=== PATIENT | male | born 1950 | race African-American/Black ===

== ENCOUNTER 2019-04-07 13:14 | Inpatient (IN) | payer BC, SELFPAY ==
[~2019-04-07 13:14] MED LIST: Iopamidol-370 76% 500 ML 1 ML ONE
[2019-04-07] MEDS ORDERED: niCARdipine 25 MG in Sodium Chloride 0.9% 250 ML 250 ML IVPB SCH (14:15)
--- NOTE | 2019-04-07 14:17 | CT ---
Exam: Head CT without contrast HISTORY: Level 2 stroke. Dizziness, starting last night. At one point this morning, left arm and leg went numb. Slurred speech. COMPARISON: none FINDINGS: Hemorrhage: No intraparenchymal hemorrhage or extra-axial hematoma. Brain parenchyma: Cortical joyce-white matter differentiation is preserved. No mass effect or midline shift. Basilar cisterns are patent.Minimal chronic small vessel ischemic changes of the white matter. Ventricular system: Ventricles and sulci are patent and symmetric. Calvarium: Intact. Sinuses and mastoid air cells: Adequate aeration. IMPRESSION: No acute intracranial process. Results study discussed with Dr. Dugan 04/07/2019 2:13 PM Code CR
[2019-04-07 14:21] LABS: #Basophils 0.1 thou/uL (0.0-0.2); #Lymphocytes 1.5 thou/uL (1.20-3.40); #Monocytes 0.3 thou/uL (0.11-0.59); %Basophils 1.2 % (0.0-1.0); %Eosinophils 0.5 % (0.0-10.0); %Lymphocytes 24.9 % (21.0-51.0); %Monocytes 4.7 % (0.0-10.0); %Neutrophils 68.8 % (42.0-75.0); Mean Corpuscular HGB CONC 32.5 g/dL (32.0-36.0); Mean Corpuscular Hemoglobin 26.8 pg (27.0-31.0); Mean Corpuscular Volume 82.7 fL (78.0-98.0); Platelet Count 125 thou/uL (130-400); RBC Distribution Width 12.5 % (11.5-14.5); Red Blood Cell (RBC) Count 5.21 mill/uL (4.70-6.10); White Blood Cell (WBC) Count 5.9 thou/uL (4.8-10.8)
[2019-04-07 14:27] LABS: INR-International Normal Ratio 1.2; Prothrombin Time 15.3 SEC (12.0-14.7)
[2019-04-07 14:42] LABS: ALT (SGPT) 14 U/L (8-55); AST (SGOT) 17 U/L (5-34); Albumin 4.2 g/dL (3.4-4.8); Alkaline Phosphatase 58 U/L (40-110); Anion Gap 14 mmol/L (10-20); BUN (Urea Nitrogen) 22 mg/dL (8.4-25.7); Bilirubin, Total 0.5 mg/dL (0.2-1.2); Calc. Creatinine Clearance 0 mL/min (70-130); Calcium 9.1 mg/dL (7.8-10.44); Carbon Dioxide 19 mmol/L (23-31); Chloride 111 mmol/L (98-107); Estimated GFR-MDRD 69; Glucose 105 mg/dL (80-115); Potassium 3.8 mmol/L (3.5-5.1); Protein, Total 7.2 g/dL (5.8-8.1); Sodium 140 mmol/L (136-145)
--- NOTE | 2019-04-07 14:46 | CT ---
CTA Angio Head W WO Con History: Weakness Comparison: None. Findings: CT angiogram of the head and neck were performed after the intravenous ministration of cont rast. 3-D rendering provided. There is extensive collateralization of vasculature. Lung apices are clear. Reversal normal cervical lordosis may be positional. No acute fracture of the cervical spine. Multiple missing teeth. There is significant reflux of contrast into the left internal jugular vein. This can be sequelae of the brachiocephalic vein narrowing. CT angiographic evaluation of the neck vertebral arteries is nondiagnostic due to lack of normal arterial opacification. Common carotid artery origin evaluation i s extremely limited. No hemodynamically significant stenosis internal carotid arteries per NASCET criteria. [place] is is patent without stenosis, thrombosis, nor aneurysm formation. [place] anterior cerebral artery. Asymmetrically enlarged right A1 segment. Basilar artery is patent. Impression: 1. No hemodynamically significant stenosis, thrombosis, nor aneurysm formation. 2. Extensive vascular collateralization the paraspinal musculature as well as reflux contrast into th e left internal jugular vein with narrowing of the left brachiocephalic vein between the great vessels and sternum.
[2019-04-07] MEDS ORDERED: Aspirin Chewable 81 MG TAB ONE (15:09)
[2019-04-07] MEDS ORDERED: niCARdipine 40MG In NaCl 40 MG/200 ML BAG IVPB SCH (16:00)
[2019-04-07 17:11] VITALS: BMI 24.9
[2019-04-07] MEDS: niCARdipine 50 MG in Sodium Chloride 0.9% 250 ML 230 ML IV SCH ×2 (17:16→20:50)
[2019-04-07] MEDS ORDERED: Lisinopril/Hydrochlorothiazide 10 mg/12.5 mg Tablet PO SCH (17:30)
[2019-04-07] MEDS ORDERED: Amlodipine 10 MG TAB PO SCH (17:30)
[2019-04-07 17:51] LABS: Troponin I 0.145 ng/mL (< 0.028)
--- NOTE | 2019-04-07 17:55 | HP ---
PRIMARY CARE PROVIDER: None. CHIEF COMPLAINT: Dizziness. HISTORY OF PRESENT ILLNESS: Mr. Glover is a pleasant 68-year-old gentleman, who was seen at [facility] on April 07, 2019. 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 Yesterday evening, he noticed, he was on the show when he had difficulty finding words. He subsequently went to a restaurant. He was going to have a beer, but he found that he could not reach with his hand because of weakness. He also started having lightheadedness and felt like he would pass out. He had attributed it to being tired and went home to sleep. Today morning, he did not go to work. He continued to have dizziness. He also reportedly had episode of slurred speech. He also found that his left leg was weak and numb, and he was unable to ambulate. He denies any dysphagia. He denies any vision symptoms. He denies any chest pain or shortness of breath. He came to the emergency room because of concern over stroke. REVIEW OF SYSTEMS: All systems were for reviewed and found to be negative, except for the pertinent positives mentioned above. PAST MEDICAL HISTORY: He was told that he had hypertension in the past, but has never taken antihypertensive medications. PAST SURGICAL HISTORY: None. SOCIAL HISTORY: The patient drinks 4 beers a day. He smokes marijuana occasionally. He denies tobacco use. FAMILY HISTORY: Myocardial infarction in his father at age 71. ALLERGIES: NO KNOWN DRUG ALLERGIES. CURRENT MEDICATIONS: None. PHYSICAL EXAMINATION: GENERAL: On examination, Mr. Glover is awake and alert, not in acute distress. VITAL SIGNS: BMI is 24.9. Blood pressure 172/103, pulse 83, respiratory rate 19, and oxygen saturation 100% on room air. He is afebrile. EYES: No scleral icterus. No conjunctival pallor. ENT: Moist mucosal membranes. No oropharyngeal erythema or exudates. NECK: Supple, nontender. Trachea is midline. RESPIRATORY: Accessory muscles of breathing are not active. Chest wall movements are symmetric bilaterally. LUNGS: Clear to auscultation without wheeze, rhonchi, or crepitations. CARDIOVASCULAR: S1 and S2 are heard, regular. Peripheral pulses palpable. ABDOMEN: Soft, nontender. Bowel sounds are heard. NEUROLOGIC: Cranial nerves 2 through 12 are intact. Power is 4+/5 in the left upper and lower extremities, 5/5 in the right upper and lower extremities. Deep tendon reflexes 2+, plantars downgoing bilaterally. MUSCULOSKELETAL: Power in the 4 extremities as described above. SKIN: No rashes or subcutaneous nodules. LYMPHATIC: No cervical lymphadenopathy. PSYCHIATRIC: Normal mood, normal affect. The patient is oriented to person, place, and time. LABORATORY DATA AND DIAGNOSTIC DATA: Mr. Glover's labs and investigations were reviewed. Electrocardiogram shows normal sinus rhythm with premature supraventricular complexes and left ventricular hypertrophy. Noncontrast CT scan of the brain did not show any acute intracranial abnormality. He also had CT angiogram of [place] and neck, which did not show any hemodynamically significant stenosis, thrombosis, or aneurysm formation. He also had extensive vascular collateralization of the paraspinal musculature as well as reflux contrast into the left internal jugular vein with narrowing of the left brachiocephalic vein between the great vessels and sternum. He has an unremarkable CBC, INR 1.2, normal sodium, normal potassium, normal creatinine, estimated GFR of 69, unremarkable LFTs, and indeterminate troponin-I of 0.145. ASSESSMENT AND PLAN: Mr. Glover is a pleasant 68-year-old gentleman, who was seen at [facility] on April 07, 2019. His problem list includes: 1. Hypertensive urgency: Mr. Glover is presenting with hypertensive urgency. In the emergency room, his blood pressures have been as high as 219/119. He is currently on a Cardene drip. He will be admitted to the Critical Care Unit for titrating the Cardene drip. 2. Dizziness: This could be secondary to hypertensive urgency. However, given the left-sided weakness, he will need to be ruled out for stroke. I will order MRI of the brain and 2D echocardiogram. I will also consult Neurology Service for opinion and help with management. I will start him on aspirin. 3. Daily alcohol use: The patient will be started on ASE protocol. 4. Marijuana use: The patient has been counseled regarding marijuana cessation. Many thanks for allowing me to participate in Mr. Glover's care. Please feel free to contact me with any questions or concerns. LEVEL OF RISK: Moderate. LEVEL OF COMPLEXITY: Moderate. Job ID: [id number]
[2019-04-07] MEDS: hydrALAZINE 20 MG/ML VIAL SLOW IVP PRN (18:34)
[2019-04-07] MEDS: Atorvastatin Calcium 40 MG TAB PO SCH (20:30)
[2019-04-07 20:40] LABS: Troponin I 0.137 ng/mL (< 0.028)
[2019-04-08 03:50] LABS: #Basophils 0.1 thou/uL (0.0-0.2); #Lymphocytes 1.4 thou/uL (1.20-3.40); #Monocytes 0.4 thou/uL (0.11-0.59); #Neutrophils 5.2 thou/uL (1.40-6.50); %Basophils 1.1 % (0.0-1.0); %Eosinophils 0.4 % (0.0-10.0); %Lymphocytes 19.8 % (21.0-51.0); %Monocytes 5.8 % (0.0-10.0); %Neutrophils 72.9 % (42.0-75.0); Hemoglobin 13.9 g/dL (14.0-18.0); Mean Corpuscular HGB CONC 32.4 g/dL (32.0-36.0); Mean Corpuscular Hemoglobin 26.7 pg (27.0-31.0); Mean Corpuscular Volume 82.4 fL (78.0-98.0); Mean Platelet Volume 8.7 fL (7.4-10.4); Platelet Count 128 thou/uL (130-400); RBC Distribution Width 12.6 % (11.5-14.5); Red Blood Cell (RBC) Count 5.21 mill/uL (4.70-6.10); White Blood Cell (WBC) Count 7.1 thou/uL (4.8-10.8)
[2019-04-08 04:05] LABS: Anion Gap 11 mmol/L (10-20); BUN (Urea Nitrogen) 18 mg/dL (8.4-25.7); Calc. Creatinine Clearance 63 mL/min (70-130); Carbon Dioxide 22 mmol/L (23-31); Chloride 109 mmol/L (98-107); Cholesterol 155 mg/dl (< 200 Desired); Estimated GFR-MDRD 73; Glucose 123 mg/dL (80-115); Potassium 3.4 mmol/L (3.5-5.1); Sodium 139 mmol/L (136-145); Triglycerides 46 mg/dL (Less than 150)
[2019-04-08 04:06] LABS: HDL Cholesterol 77 mg/dL (>60 Neg Risk); LDL Cholesterol, Calculated 69 mg/dL
[2019-04-08] MEDS: niCARdipine 50 MG in Sodium Chloride 0.9% 250 ML 230 ML IV SCH ×3 (05:54→18:21)
[2019-04-08] MEDS: Enoxaparin Sodium 40 MG/0.4 ML SYRINGE SC SCH (09:16)
[2019-04-08] MEDS: Aspirin 325 mg Enteric Coated Tablet PO SCH (09:17)
[2019-04-08] MEDS: Lisinopril/Hydrochlorothiazide 10 mg/12.5 mg Tablet PO SCH (09:17)
[2019-04-08] MEDS: Amlodipine 5 MG TAB PO SCH (09:17)
--- NOTE | 2019-04-08 09:25 | MRI ---
MRI BRAIN NONCONTRAST: DATE: 04/08/2019 HISTORY: 68-year-old male with acute dizziness, mild dysarthria, and left upper and lower extremity hypesthesi a. Stroke symptoms. COMPARISON: No prior brain MRIs. FINDINGS: At midline and slightly to the right of midline, there is a 0.8 x 0.4 cm old lacunar infarction. In t he right side of the abe, there is a subtle, ill-defined, faint patch of mildly hyperintense T2 sign al measuring approximately 1.0 x 0.4 cm, with mildly restricted diffusion. The appropriate flow-voids are maintained in the bilateral intracranial vertebral and basilar arterie s, and in the bilateral carotid siphons. Ventricles are normal in size and configuration. Numerous ve ry small focal T2 hyperintense lesions in the bilateral [place] radiata and centrum semiovale consiste nt with mild chronic ischemic white matter changes due to small vessel disease. No evidence of recent or remote intra-axial hemorrhage, mass effect, midline shift, or extra-axial fluid collection. IMPRESSION: 1. Mildly restricted diffusion and faint T2 prolongation at right side of abe: findings suggestive of a recetn lacunar infarction in the right side of the abe, perhaps subacute. Recommend 3 month fo llow up MRI of brain with and without contrast to rule out other etiologies. 2. Old lacunar infarction at midline abe. 3. Mild chronic ischemic white matter changes. JN R POS: OFF
[2019-04-08] MEDS: hydrALAZINE 20 MG/ML VIAL SLOW IVP PRN (12:54)
--- NOTE | 2019-04-08 16:41 | PDOC.HOSPP ---
- Subjective Encounter Date: 04/08/19 Encounter Time: 09:40 Subjective: Pt seen for followup re: hypertensive urgency. Feels better today. has LUE weakness. - Objective Vital Signs & Weight: Vital Signs (12 hours) Pulse Pulse Pulse BP BP BP Pulse Ox 04/08/19 14:31 72 155/82 H 04/08/19 12:54 72 172/80 H 04/08/19 09:17 72 157/88 H 04/08/19 09:05 70 65 160/92 H 155/81 H 04/08/19 07:59 99 Pulse Ox Pulse Ox 04/08/19 14:31 99 04/08/19 12:54 04/08/19 09:17 04/08/19 09:05 100 99 04/08/19 07:59 Weight Admit Weight 163 lb Weight 163 lb 12.855 oz Most Recent Monitor Data Heart Rate from ECG 79 NIBP 155/81 NIBP BP-Mean 105 Respiration from ECG 22 SpO2 98 I&O: 04/07/19 04/08/19 04/09/19 06:59 06:59 06:59 Intake Total 1414 Output Total 1150 Balance 264 Result Diagrams: 04/08/19 03:33 04/08/19 03:33 Additional Labs: labs and MARs reviewed by co Hospitalist ROS - Review of Systems Respiratory: denies: cough, dry, shortness of breath, hemoptysis, SOB with excertion, pleuritic pain, sputum, wheezing Cardiovascular: denies: chest pain, palpitations, orthopnea, paroxysmal noc. dyspnea, edema, light headedness Neurological: reports: weakness, numbness, change in speech - Medication Medications: Active Medications Generic Name Dose Route Start Last Admin Trade Name Freq PRN Reason Stop Dose Admin Amlodipine Besylate 5 mg 04/08/19 09:00 04/08/19 09:17 Norvasc PO 5 mg DAILY MARY Administration Aspirin 325 mg 04/08/19 09:00 04/08/19 09:17 Ecotrin PO 325 mg DAILY MARY Administration Atorvastatin Calcium 40 mg 04/07/19 21:00 04/07/19 20:30 Lipitor PO 40 mg HS MARY Administration Enoxaparin Sodium 40 mg 04/08/19 09:00 04/08/19 09:16 Lovenox SC 40 mg 0900 MARY Administration Lisinopril/HCTZ 1 tab 04/08/19 09:00 04/08/19 09:17 Prinizide 10-12.5 PO 1 tab DAILY MAYR Administration Hydralazine HCl 10 mg 04/07/19 17:30 04/08/19 12:54 Apresoline SLOW IVP 10 mg Q6H PRN Administration SBP Greater Than 170 Nicardipine HCl 50 mg/ Sodium 250 mls @ 0 mls/hr 04/07/19 16:15 04/08/19 12: 58 Chloride IV 250 mls INF MARY Administration Protocol As Directed - Exam General Appearance: NAD Eye: anicteric sclera ENT: moist mucosa Neck: supple, no JVD Heart: RRR, no rubs Respiratory: CTAB Gastrointestinal: soft, non-tender Extremities: no clubbing Skin: no rashes Neurological: speech deficit Neurological - other findings: LUE weakness Musculoskeletal: no muscle wasting Psychiatric: normal behavior Hosp A/P (1) Hypertensive urgency Code(s): I16.0 - HYPERTENSIVE URGENCY Status: Acute (2) Ischemic cerebrovascular accident (CVA) Code(s): I63.9 - CEREBRAL INFARCTION, UNSPECIFIED Status: Acute (3) Hypokalemia Code(s): E87.6 - HYPOKALEMIA Status: Acute - Plan PT/OT, out of bed/ambulate Try to wean off cardene drip Continue aspirin and statin. Await MRI/echo Continue ASE protocol. Pt appears anxious, PRN PO Xanax.
[2019-04-08] MEDS ORDERED: Potassium Chloride 20 MEQ TAB PO SCH (16:45)
[2019-04-08] MEDS ORDERED: Prevnar 13-Val Conj/PF 0.5 ML SYRINGE IM ONE (18:00)
[2019-04-08] MEDS ORDERED: FLU VACC TS2019-20(65YR UP)/PF 180 MCG/0.5 ML SYRINGE IM ONE (18:00)
[2019-04-08] MEDS: ALPRAZolam 0.25 MG TAB PO PRN (18:21)
[2019-04-08] MEDS: Atorvastatin Calcium 40 MG TAB PO SCH (20:51)
[2019-04-09 04:19] LABS: #Basophils 0.1 thou/uL (0.0-0.2); #Eosinphils 0.1 thou/uL (0.0-0.7); #Lymphocytes 1.9 thou/uL (1.20-3.40); #Monocytes 0.5 thou/uL (0.11-0.59); #Neutrophils 3.5 thou/uL (1.40-6.50); %Eosinophils 1.6 % (0.0-10.0); %Lymphocytes 30.8 % (21.0-51.0); %Monocytes 7.3 % (0.0-10.0); %Neutrophils 58.2 % (42.0-75.0); Hemoglobin 14.7 g/dL (14.0-18.0); Mean Corpuscular HGB CONC 32.8 g/dL (32.0-36.0); Mean Corpuscular Hemoglobin 26.9 pg (27.0-31.0); Mean Corpuscular Volume 81.9 fL (78.0-98.0); Mean Platelet Volume 8.8 fL (7.4-10.4); Platelet Count 136 thou/uL (130-400); RBC Distribution Width 12.8 % (11.5-14.5); Red Blood Cell (RBC) Count 5.46 mill/uL (4.70-6.10); White Blood Cell (WBC) Count 6.1 thou/uL (4.8-10.8)
[2019-04-09 04:36] LABS: Anion Gap 13 mmol/L (10-20); BUN (Urea Nitrogen) 15 mg/dL (8.4-25.7); Calc. Creatinine Clearance 68 mL/min (70-130); Calcium 9.3 mg/dL (7.8-10.44); Carbon Dioxide 23 mmol/L (23-31); Chloride 106 mmol/L (98-107); Estimated GFR-MDRD 80; Glucose 102 mg/dL (80-115); Potassium 3.8 mmol/L (3.5-5.1); Sodium 138 mmol/L (136-145)
[2019-04-09] MEDS: niCARdipine 50 MG in Sodium Chloride 0.9% 250 ML 230 ML IV SCH (04:40)
[2019-04-09] MEDS: Aspirin 325 mg Enteric Coated Tablet PO SCH (08:46)
[2019-04-09] MEDS: Amlodipine 5 MG TAB PO SCH (08:46)
[2019-04-09] MEDS: Enoxaparin Sodium 40 MG/0.4 ML SYRINGE SC SCH (08:46)
[2019-04-09] MEDS: Lisinopril/Hydrochlorothiazide 10 mg/12.5 mg Tablet PO SCH (09:33)
[2019-04-09] MEDS ORDERED: hydrALAZINE 25 MG TAB PO SCH (11:15)
--- NOTE | 2019-04-09 14:25 | PDOC.HOSPP ---
- Subjective Encounter Date: 04/09/19 Encounter Time: 09:40 Subjective: Pt seen for followup re; hypertensive urgency. - Objective Vital Signs & Weight: Vital Signs (12 hours) Temp Pulse BP Pulse Ox 04/09/19 11:31 97 04/09/19 11:11 69 154/92 H 04/09/19 09:33 69 154/92 H 04/09/19 08:46 69 154/92 H 04/09/19 08:00 99 04/09/19 04:00 98.3 F Weight Admit Weight 163 lb Weight 163 lb 12.855 oz Most Recent Monitor Data Heart Rate from ECG 82 NIBP 171/123 NIBP BP-Mean 139 Respiration from ECG 24 SpO2 99 I&O: 04/08/19 04/09/19 04/10/19 06:59 06:59 06:59 Intake Total 1414 2077 315 Output Total 1150 1975 0 Balance 264 102 315 Result Diagrams: 04/09/19 03:27 04/09/19 03:27 Additional Labs: Labs and MARs reviewed by me EKG Reviewed by me: Yes (Tele: NSR) Hospitalist ROS - Review of Systems Cardiovascular: denies: chest pain, palpitations, orthopnea, paroxysmal noc. dyspnea, edema, light headedness Gastrointestinal: denies: nausea, vomiting, abdominal pain, diarrhea, constipation, melena, hematochezia Neurological: reports: weakness - Medication Medications: Active Medications Generic Name Dose Route Start Last Admin Trade Name Freq PRN Reason Stop Dose Admin Alprazolam 0.25 mg 04/08/19 14:40 04/08/19 18:21 Xanax PO 0.25 mg BIDPRN PRN Administration Anxiety Amlodipine Besylate 5 mg 04/08/19 09:00 04/09/19 08:46 Norvasc PO 5 mg DAILY MARY Administration Aspirin 325 mg 04/08/19 09:00 04/09/19 08:46 Ecotrin PO 325 mg DAILY MARY Administration Atorvastatin Calcium 40 mg 04/07/19 21:00 04/08/19 20:51 Lipitor PO 40 mg HS MARY Administration Enoxaparin Sodium 40 mg 04/08/19 09:00 04/09/19 08:46 Lovenox SC 40 mg 0900 MARY Administration Lisinopril/HCTZ 1 tab 04/08/19 09:00 04/09/19 09:33 Prinizide 10-12.5 PO 1 tab DAILY MARY Administration Hydralazine HCl 10 mg 04/07/19 17:30 04/08/19 12:54 Apresoline SLOW IVP 10 mg Q6H PRN Administration SBP Greater Than 170 Nicardipine HCl 50 mg/ Sodium 250 mls @ 0 mls/hr 04/07/19 16:15 04/09/19 04: 40 Chloride IV 250 mls INF MARY Administration Protocol As Directed - Exam General Appearance: NAD Eye: anicteric sclera ENT: moist mucosa Neck: supple, no JVD Heart: RRR, no rubs Respiratory: CTAB, no rales Gastrointestinal: soft, non-tender Extremities: no edema Skin: no rashes Neurological - other findings: LUE weakness Psychiatric: normal affect, normal behavior Hosp A/P (1) Hypertensive urgency Code(s): I16.0 - HYPERTENSIVE URGENCY Status: Acute (2) Ischemic cerebrovascular accident (CVA) Code(s): I63.9 - CEREBRAL INFARCTION, UNSPECIFIED Status: Acute (3) Hypokalemia Code(s): E87.6 - HYPOKALEMIA Status: Resolved - Plan PT/OT, out of bed/ambulate Increase hydralazine dose. Continue aspirin and statin. Echo unremarkable. Continue ASE protocol. Pt denies chest pain. Troponins in indeterminate range. May need risk stratification.
[2019-04-09] MEDS: hydrALAZINE 25 MG TAB PO SCH ×2 (14:53→20:29)
--- NOTE | 2019-04-09 17:05 | CON ---
DATE OF CONSULTATION: 04/09/2019 CONSULTING PHYSICIAN: Pedro Hooks MD REASON FOR CONSULTATION: The patient is in the ICU for treatment of hypertensive emergency related to stroke. HISTORY OF PRESENT ILLNESS: Mr. Glover is a pleasant 68-year-old, who was admitted several days ago with a facial droop on the left, left-sided weakness, and malignant hypertension requiring a nicardipine drip. He has recovered most of his speech deficit, but has left arm weakness and some weakness in his left leg. PAST MEDICAL HISTORY: Remarkable for hypertension, but he does not follow up after the initial visit with his primary care doctor several years ago. PAST SURGICAL HISTORY: None. SOCIAL HISTORY: He drinks four beers a day. He smokes marijuana in the morning and the evening. He works at [employer]. 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 FAMILY MEDICAL HISTORY: Remarkable for heart disease. ALLERGIES: NONE. MEDICATIONS: Prior to admission none. CURRENT INPATIENT MEDICATIONS: Reviewed, see chart. REVIEW OF SYSTEMS: Twelve-point review of systems is otherwise negative. PHYSICAL EXAMINATION: VITAL SIGNS: Temperature 98.3, pulse 90, blood pressure 157/135, and O2 saturation 97%. GENERAL: He is awake and alert, in no distress. NEUROLOGIC: His pupils are reactive. He has a left-sided facial droop. He has 3/5 muscle strength left hand and left arm. 4/5 muscle strength, left leg. He has 5/5 muscle strength right arm and right leg. He has feeling throughout. HEENT: Otherwise, unremarkable. NECK: No adenopathy or JVD. CHEST: Clear without wheezing or rhonchi. CARDIAC: S1 and S2. Regular. ABDOMEN: Soft. EXTREMITIES: No edema. LABORATORY DATA: White blood cell count 6.1, hematocrit 44.7, and platelet count 136. Sodium 138, potassium 3.8, chloride 106, CO2 of 23, BUN 15, creatinine 1.1, and glucose 102. His MRI shows a right-sided pontine stroke. Echocardiogram demonstrated left ventricular hypertrophy with ejection fraction of 60% to 65% with evidence of diastolic dysfunction. ASSESSMENT: 1. Malignant hypertension. 2. Pontine stroke with left-sided hemiparesis. PLAN: The patient is being weaned off his nicardipine drip. His oral antihypertensives have been adjusted by Dr. Hooks. He can probably transfer to the stroke floor later this evening. I agree with his medical care and have nothing at this time. Thank you for the referral. Job ID: [id number]
[2019-04-09] MEDS: Atorvastatin Calcium 40 MG TAB PO SCH (20:28)
--- NOTE | 2019-04-09 22:04 | CON ---
DATE OF CONSULTATION: 04/09/2019 CONSULTING PHYSICIAN: Hospitalist Service. IMPRESSION: 1. Lacunar stroke in the abe resulting in a left hemiparesis. 2. Undiagnosed hypertension. PLAN: 1. Aspirin 81 mg per day. 2. Lipitor 40 mg per day. 3. Blood pressure management. 4. Probable need for rehab transfer. HISTORY OF PRESENT ILLNESS: Mr. Glover is a 68-year-old man, who had no known past history, presented with left-sided weakness. He was markedly hypertensive. He was admitted to the ICU and put on a Cardene drip. Initial CT and CTA did not show any extracranial stenosis. MRI revealed a pontine infarct that was acute. His echocardiogram shows a normal ejection fraction of 60% to 65%. Cholesterol ratio was 2.0. Remainder of his lab was unremarkable. He has seen very little improvement in his left-sided weakness since admission. PAST MEDICAL HISTORY: Otherwise negative. ALLERGIES: NONE. SOCIAL HISTORY: No tobacco or illicit drug use. FAMILY HISTORY: Noncontributory. REVIEW OF SYSTEMS: Ten-system review of systems is otherwise negative. PHYSICAL EXAMINATION: GENERAL: He is a thin, middle-aged man, sitting up in a chair, in no acute distress. VITAL SIGNS: Blood pressure 154/98, pulse 72, and sinus rhythm. HEENT: Pupils are equal and reactive. Conjunctivae clear. Oropharynx clear. Cranium, normocephalic and atraumatic. NECK: Supple. No lymphadenopathy. EXTREMITIES: No cyanosis, clubbing, or edema. NEUROLOGIC: He is alert and appropriate. His speech is fluent and clear. He has a slight left facial droop. He has a dense left upper extremity paresis with no movement. He has antigravity strength proximally in the left leg, but no movement distally. Sensation is intact to light touch. No tremor or dysmetria is present. Gait was not tested. SUMMARY: This is a middle-aged man with a lacunar stroke in the abe, resulting in a left hemiparesis. His workup is complete. He has good swallow function. He can be transferred out when he has stabilized his blood pressure. He will likely need inpatient rehab. Job ID: [id number]
[2019-04-10] MEDS: hydrALAZINE 20 MG/ML VIAL SLOW IVP PRN ×2 (02:10→11:25)
[2019-04-10] MEDS: ALPRAZolam 0.25 MG TAB PO PRN ×2 (03:37→20:31)
[2019-04-10 04:08] LABS: #Eosinphils 0.1 thou/uL (0.0-0.7); #Lymphocytes 1.2 thou/uL (1.20-3.40); #Monocytes 0.5 thou/uL (0.11-0.59); #Neutrophils 3.2 thou/uL (1.40-6.50); %Basophils 0.6 % (0.0-1.0); %Eosinophils 2.8 % (0.0-10.0); %Lymphocytes 24.5 % (21.0-51.0); %Monocytes 9.8 % (0.0-10.0); %Neutrophils 62.3 % (42.0-75.0); Hemoglobin 15.3 g/dL (14.0-18.0); Mean Corpuscular HGB CONC 31.5 g/dL (32.0-36.0); Mean Corpuscular Hemoglobin 26.1 pg (27.0-31.0); Mean Corpuscular Volume 82.8 fL (78.0-98.0); Mean Platelet Volume 8.7 fL (7.4-10.4); Platelet Count 127 thou/uL (130-400); RBC Distribution Width 12.8 % (11.5-14.5); Red Blood Cell (RBC) Count 5.88 mill/uL (4.70-6.10); White Blood Cell (WBC) Count 5.1 thou/uL (4.8-10.8)
[2019-04-10 04:31] LABS: Anion Gap 14 mmol/L (10-20); BUN (Urea Nitrogen) 24 mg/dL (8.4-25.7); Calc. Creatinine Clearance 52 mL/min (70-130); Calcium 9.4 mg/dL (7.8-10.44); Carbon Dioxide 22 mmol/L (23-31); Chloride 105 mmol/L (98-107); Estimated GFR-MDRD 59; Glucose 101 mg/dL (80-115); Potassium 3.8 mmol/L (3.5-5.1); Sodium 137 mmol/L (136-145)
[2019-04-10] MEDS: hydrALAZINE 25 MG TAB PO SCH ×3 (07:53→20:30)
[2019-04-10] MEDS: Aspirin 325 mg Enteric Coated Tablet PO SCH (07:53)
[2019-04-10] MEDS: Amlodipine 5 MG TAB PO SCH (07:54)
[2019-04-10] MEDS: Lisinopril/Hydrochlorothiazide 10 mg/12.5 mg Tablet PO SCH (07:54)
[2019-04-10] MEDS: Enoxaparin Sodium 40 MG/0.4 ML SYRINGE SC SCH (07:55)
--- NOTE | 2019-04-10 08:35 | PRG ---
DATE OF SERVICE: 04/10/2019 SUBJECTIVE: The patient is doing reasonably well. He has been weaned off the nicardipine drip. OBJECTIVE: VITAL SIGNS: Temperature 98.3, pulse 96, blood pressure 155/91, O2 saturation 100%. HEENT: Unremarkable. NECK: No adenopathy or JVD. LUNGS: Clear. CARDIAC: S1, S2. Regular. ABDOMEN: Soft. EXTREMITIES: No edema. He still has left-sided hemiparesis. LABORATORY DATA: White blood cell count 5.1, hematocrit 48.7, and platelet count 127. Sodium 137, potassium 3.8, chloride 105, CO2 of 22, BUN 24, creatinine 1.5, glucose 101. ASSESSMENT: 1. Pontine stroke with left-sided hemiparesis. 2. Hypertension. PLAN: He will be transferred to the floor to continue stroke rehab. Hypertensive management will be per the Hospitalist team. Pulmonary will sign off the case. Please recall if further assistance is needed. Job ID: [id number]
--- NOTE | 2019-04-10 12:55 | PDOC.HOSPP ---
- Subjective Encounter Date: 04/10/19 Encounter Time: 09:20 Subjective: Pt seen for followup re: hypertensive urgency. Still has LUE weakness. - Objective Vital Signs & Weight: Vital Signs (12 hours) Temp Pulse BP Pulse Ox 04/10/19 11:25 81 155/117 H 04/10/19 07:55 100 04/10/19 07:54 81 155/117 H 04/10/19 07:53 81 155/117 H 04/10/19 07:00 97.9 F 04/10/19 04:00 98.3 F 04/10/19 02:10 65 172/118 H Weight Admit Weight 163 lb Weight 163 lb 12.855 oz Most Recent Monitor Data Heart Rate from ECG 77 NIBP 174/127 NIBP BP-Mean 142 Respiration from ECG 14 SpO2 95 I&O: 04/09/19 04/10/19 04/11/19 06:59 06:59 06:59 Intake Total 2077 855 300 Output Total 1975 700 0 Balance 102 155 300 Result Diagrams: 04/10/19 03:40 04/10/19 03:40 Additional Labs: Labs and MARs reviewed by me EKG Reviewed by me: Yes (Tele: NSR) Hospitalist ROS - Review of Systems Cardiovascular: denies: chest pain, palpitations, orthopnea, paroxysmal noc. dyspnea, edema, light headedness Gastrointestinal: denies: nausea, vomiting, abdominal pain, diarrhea, constipation, melena, hematochezia - Medication Medications: Active Medications Generic Name Dose Route Start Last Admin Trade Name Freq PRN Reason Stop Dose Admin Alprazolam 0.25 mg 04/08/19 14:40 04/10/19 03:37 Xanax PO 0.25 mg BIDPRN PRN Administration Anxiety Aspirin 325 mg 04/08/19 09:00 04/10/19 07:53 Ecotrin PO 325 mg DAILY MARY Administration Atorvastatin Calcium 40 mg 04/07/19 21:00 04/09/19 20:28 Lipitor PO 40 mg HS MARY Administration Enoxaparin Sodium 40 mg 04/08/19 09:00 04/10/19 07:55 Lovenox SC 40 mg 0900 MARY Administration Lisinopril/HCTZ 1 tab 04/08/19 09:00 04/10/19 07:54 Prinizide 10-12.5 PO 1 tab DAILY MARY Administration Hydralazine HCl 10 mg 04/07/19 17:30 04/10/19 11:25 Apresoline SLOW IVP 10 mg Q6H PRN Administration SBP Greater Than 170 - Exam General Appearance: NAD Eye: anicteric sclera ENT: dry oral mucosa Neck: supple Heart: RRR Respiratory: CTAB Gastrointestinal: soft, non-tender Neurological - other findings: LUE weak Psychiatric: normal behavior, A&O x 3 Hosp A/P (1) Hypertensive urgency Code(s): I16.0 - HYPERTENSIVE URGENCY Status: Acute (2) Ischemic cerebrovascular accident (CVA) Code(s): I63.9 - CEREBRAL INFARCTION, UNSPECIFIED Status: Acute (3) ERIC (acute kidney injury) Code(s): N17.9 - ACUTE KIDNEY FAILURE, UNSPECIFIED Status: Acute (4) Hypokalemia Code(s): E87.6 - HYPOKALEMIA Status: Resolved - Plan Increase hydralazine dose to 50 mg TID, amlodipine to 10 mg daily. Gentle hydration and recheck creatinine. Continue aspirin and statin. Continue ASE protocol. Stress test
[2019-04-10] MEDS ORDERED: hydrALAZINE 25 MG TAB PO SCH (13:00)
[2019-04-10] MEDS ORDERED: Amlodipine 5 MG TAB PO SCH (13:00)
[2019-04-10] MEDS: Sodium Chloride 0.9% 1,000 ML IV SCH (15:44)
[2019-04-10] MEDS: Atorvastatin Calcium 40 MG TAB PO SCH (20:31)
[2019-04-11] MEDS: Enoxaparin Sodium 40 MG/0.4 ML SYRINGE SC SCH (07:56)
[2019-04-11] MEDS: hydrALAZINE 25 MG TAB PO SCH ×3 (07:57→20:22)
[2019-04-11] MEDS: Amlodipine 10 MG TAB PO SCH (07:57)
[2019-04-11] MEDS: Aspirin 325 mg Enteric Coated Tablet PO SCH (07:57)
[2019-04-11] MEDS: Lisinopril/Hydrochlorothiazide 10 mg/12.5 mg Tablet PO SCH (07:58)
[2019-04-11] MEDS: Sodium Chloride 0.9% 1,000 ML IV SCH (12:02)
--- NOTE | 2019-04-11 14:51 | PDOC.HOSPP ---
- Subjective Encounter Date: 04/11/19 Encounter Time: 09:00 Subjective: Pt seen for followup re: hypertensive urgency. No new complaints today. - Objective Vital Signs & Weight: Vital Signs (12 hours) Temp Pulse Resp BP BP BP BP 04/11/19 14:17 62 142/90 H 04/11/19 13:53 142/90 H 174/94 H 04/11/19 11:12 98.4 F 67 20 168/93 H 04/11/19 08:00 04/11/19 07:58 160/97 H 04/11/19 07:57 160/97 H 04/11/19 07:00 98.2 F 04/11/19 04:00 98.6 F 160/97 H Pulse Ox 04/11/19 14:17 04/11/19 13:53 04/11/19 11:12 100 04/11/19 08:00 99 04/11/19 07:58 04/11/19 07:57 04/11/19 07:00 04/11/19 04:00 Weight Admit Weight 163 lb Weight 163 lb 12.855 oz Most Recent Monitor Data Heart Rate from ECG 75 NIBP 152/98 NIBP BP-Mean 116 Respiration from ECG 21 SpO2 100 I&O: 04/10/19 04/11/19 04/12/19 06:59 06:59 06:59 Intake Total 855 1094 0 Output Total 700 900 0 Balance 155 194 0 Result Diagrams: 04/10/19 03:40 04/10/19 03:40 Additional Labs: labs and MARs reviewed by me EKG Reviewed by me: Yes (Tele; NSR) Hospitalist ROS - Review of Systems Cardiovascular: denies: chest pain, palpitations, orthopnea, paroxysmal noc. dyspnea, edema, light headedness Gastrointestinal: denies: nausea, vomiting, abdominal pain, diarrhea, constipation, melena, hematochezia Neurological: reports: weakness - Medication Medications: Active Medications Generic Name Dose Route Start Last Admin Trade Name Freq PRN Reason Stop Dose Admin Alprazolam 0.25 mg 04/08/19 14:40 04/10/19 20:31 Xanax PO 0.25 mg BIDPRN PRN Administration Anxiety Amlodipine Besylate 10 mg 04/11/19 09:00 04/11/19 07:57 Norvasc PO 10 mg DAILY MARY Administration Aspirin 325 mg 04/08/19 09:00 04/11/19 07:57 Ecotrin PO 325 mg DAILY MARY Administration Atorvastatin Calcium 40 mg 04/07/19 21:00 04/10/19 20:31 Lipitor PO 40 mg HS MARY Administration Enoxaparin Sodium 40 mg 04/08/19 09:00 04/11/19 07:56 Lovenox SC 40 mg 0900 MARY Administration Lisinopril/HCTZ 1 tab 04/08/19 09:00 04/11/19 07:58 Prinizide 10-12.5 PO 1 tab DAILY MARY Administration Hydralazine HCl 10 mg 04/07/19 17:30 04/10/19 11:25 Apresoline SLOW IVP 10 mg Q6H PRN Administration SBP Greater Than 170 Hydralazine HCl 50 mg 04/10/19 15:00 04/11/19 14:17 Apresoline PO 50 mg TID MARY Administration Sodium Chloride 1,000 mls @ 50 mls/hr 04/10/19 13:00 04/11/19 12:02 Normal Saline 0.9% IV 1,000 mls .Q20H MARY Administration - Exam General Appearance: NAD Eye: anicteric sclera ENT: moist mucosa Neck: supple Heart: RRR Respiratory: CTAB, no rales Gastrointestinal: soft, non-tender Extremities: no clubbing Skin: no rashes Neurological - other findings: left upper extremity weakness Psychiatric: normal affect, normal behavior Hosp A/P (1) Hypertensive urgency Code(s): I16.0 - HYPERTENSIVE URGENCY Status: Acute (2) Ischemic cerebrovascular accident (CVA) Code(s): I63.9 - CEREBRAL INFARCTION, UNSPECIFIED Status: Acute (3) ERIC (acute kidney injury) Code(s): N17.9 - ACUTE KIDNEY FAILURE, UNSPECIFIED Status: Acute (4) Hypokalemia Code(s): E87.6 - HYPOKALEMIA Status: Resolved - Plan PT/OT, out of bed/ambulate BP improved. Continue aspirin and statin. Continue ASE protocol. Stress test Check AM labs.
[2019-04-11] MEDS: hydrALAZINE 20 MG/ML VIAL SLOW IVP PRN (16:30)
[2019-04-11] MEDS ORDERED: cloNIDine 0.1 MG TAB PO PRN (18:02)
[2019-04-11] MEDS ORDERED: hydrALAZINE 25 MG TAB PO SCH (18:15)
[2019-04-11] MEDS: Atorvastatin Calcium 40 MG TAB PO SCH (20:22)
[2019-04-11] MEDS: ALPRAZolam 0.25 MG TAB PO PRN (20:31)
[2019-04-11] MEDS: Acetaminophen 325 MG TAB PO PRN (20:31)
[2019-04-12 04:53] LABS: #Eosinphils 0.2 thou/uL (0.0-0.7); #Lymphocytes 1.2 thou/uL (1.20-3.40); #Monocytes 0.5 thou/uL (0.11-0.59); #Neutrophils 2.3 thou/uL (1.40-6.50); %Basophils 0.9 % (0.0-1.0); %Eosinophils 5.2 % (0.0-10.0); %Lymphocytes 27.3 % (21.0-51.0); %Monocytes 11.6 % (0.0-10.0); %Neutrophils 55.1 % (42.0-75.0); Hemoglobin 14.2 g/dL (14.0-18.0); Mean Corpuscular HGB CONC 32.5 g/dL (32.0-36.0); Mean Corpuscular Hemoglobin 26.9 pg (27.0-31.0); Mean Corpuscular Volume 82.8 fL (78.0-98.0); Mean Platelet Volume 8.6 fL (7.4-10.4); Platelet Count 128 thou/uL (130-400); RBC Distribution Width 12.6 % (11.5-14.5); Red Blood Cell (RBC) Count 5.28 mill/uL (4.70-6.10); White Blood Cell (WBC) Count 4.2 thou/uL (4.8-10.8)
[2019-04-12 05:07] LABS: Anion Gap 11 mmol/L (10-20); BUN (Urea Nitrogen) 30 mg/dL (8.4-25.7); Calc. Creatinine Clearance 44 mL/min (70-130); Calcium 8.9 mg/dL (7.8-10.44); Carbon Dioxide 25 mmol/L (23-31); Chloride 104 mmol/L (98-107); Estimated GFR-MDRD 48; Glucose 93 mg/dL (80-115); Potassium 3.9 mmol/L (3.5-5.1); Sodium 136 mmol/L (136-145)
[2019-04-12] MEDS ORDERED: Regadenoson 0.4 MG/5 ML SYRINGE ONE (09:43)
[2019-04-12] MEDS: Lisinopril/Hydrochlorothiazide 10 mg/12.5 mg Tablet PO SCH (10:06)
[2019-04-12] MEDS: Sodium Chloride 0.9% 1,000 ML IV SCH ×3 (10:06→21:05)
--- NOTE | 2019-04-12 10:06 | NM ---
EXAM: CARDIAC SPECT HISTORY: Chest pain TECHNIQUE: A myocardial perfusion scan was performed using the single isotope 2 day protocol with kalen hnetium 99m sestamibi. [30 mCi] was injected intravenously for the rest exam followed by 30 mCi for the stress study. Pharmacologic stress with Lexiscan was monitored and interpreted by Jolynn Garcia nurse practitioner FINDINGS: Homogeneous tracer distribution is seen in the myocardial segments on stress and rest image s without fixed or reversible defects. Gated SPECT LVEF: 50% Wall motion exam: Normal IMPRESSION: Normal myocardial perfusion scan
[2019-04-12] MEDS: Aspirin 325 mg Enteric Coated Tablet PO SCH (10:10)
[2019-04-12] MEDS: hydrALAZINE 25 MG TAB PO SCH ×4 (10:10→21:04)
[2019-04-12] MEDS: Enoxaparin Sodium 40 MG/0.4 ML SYRINGE SC SCH (10:10)
[2019-04-12] MEDS: Amlodipine 10 MG TAB PO SCH (10:11)
[2019-04-12] MEDS ORDERED: Bisacodyl 5 MG TAB PO PRN (13:17)
[2019-04-12] MEDS ORDERED: Bisacodyl 5 MG TAB PO SCH (13:30)
--- NOTE | 2019-04-12 14:01 | PDOC.HOSPP ---
- Subjective Encounter Date: 04/12/19 Encounter Time: 07:00 Subjective: Pt seen for followup re: acute kidney injury. Feels well, LUE is less weak. c/ o constipation. - Objective Vital Signs & Weight: Vital Signs (12 hours) Temp Pulse Pulse Resp BP BP BP 04/12/19 13:35 155/96 H 04/12/19 12:00 155/96 H 04/12/19 11:51 97.6 F 92 17 155/96 H 04/12/19 11:16 91 155/96 H 04/12/19 10:11 70 04/12/19 10:10 70 04/12/19 10:06 70 04/12/19 08:00 153/104 H 04/12/19 07:45 98.2 F 70 16 153/104 H 04/12/19 04:14 98.3 F 82 16 102/93 H Pulse Ox 04/12/19 13:35 04/12/19 12:00 04/12/19 11:51 99 04/12/19 11:16 04/12/19 10:11 04/12/19 10:10 04/12/19 10:06 04/12/19 08:00 100 04/12/19 07:45 100 04/12/19 04:14 96 Weight Admit Weight 163 lb Weight 163 lb 12.855 oz Most Recent Monitor Data Heart Rate from ECG 75 NIBP 152/98 NIBP BP-Mean 116 Respiration from ECG 21 SpO2 100 I&O: 04/11/19 04/12/19 04/13/19 06:59 06:59 06:59 Intake Total 1094 0 Output Total 900 0 Balance 194 0 Result Diagrams: 04/12/19 04:37 04/12/19 04:37 Additional Labs: Labs and MARs reviewed by me EKG Reviewed by me: Yes (Tele; NSR) Hospitalist ROS - Review of Systems Cardiovascular: denies: chest pain, palpitations, orthopnea, paroxysmal noc. dyspnea, edema, light headedness Gastrointestinal: reports: constipation Skin: denies: rash, lesions, carroll, bruising Neurological: reports: weakness - Medication Medications: Active Medications Generic Name Dose Route Start Last Admin Trade Name Freq PRN Reason Stop Dose Admin Acetaminophen 650 mg 04/07/19 15:58 04/11/19 20:31 Tylenol PO 650 mg Q4H PRN Administration Headache/Fever/Mild Pain (1-3) Alprazolam 0.25 mg 04/08/19 14:40 04/11/19 20:31 Xanax PO 0.25 mg BIDPRN PRN Administration Anxiety Amlodipine Besylate 10 mg 04/11/19 09:00 04/12/19 10:11 Norvasc PO 10 mg DAILY MARY Administration Aspirin 325 mg 04/08/19 09:00 04/12/19 10:10 Ecotrin PO 325 mg DAILY MARY Administration Atorvastatin Calcium 40 mg 04/07/19 21:00 04/11/19 20:22 Lipitor PO 40 mg HS MARY Administration Bisacodyl 10 mg 04/12/19 13:30 04/12/19 13:43 Dulcolax PO 04/12/19 15:30 10 mg NOW MARY Administration Enoxaparin Sodium 40 mg 04/08/19 09:00 04/12/19 10:10 Lovenox SC 40 mg 0900 MARY Administration Hydralazine HCl 10 mg 04/07/19 17:30 04/11/19 16:30 Apresoline SLOW IVP 10 mg Q6H PRN Administration SBP Greater Than 170 Hydralazine HCl 75 mg 04/11/19 21:00 04/12/19 13:35 Apresoline PO 75 mg QID MARY Administration Sodium Chloride 1,000 mls @ 100 mls/hr 04/12/19 09:15 04/12/19 10:06 Normal Saline 0.9% IV 1,000 mls .Q10H MARY Administration - Exam General Appearance: awake alert Eye: PERRL ENT: normocephalic atraumatic Neck: no JVD Heart: RRR Respiratory: CTAB Gastrointestinal: soft, non-tender Extremities: no edema Skin: no rashes Neurological - other findings: LUE weakness Psychiatric: normal affect, normal behavior Hosp A/P (1) ERIC (acute kidney injury) Code(s): N17.9 - ACUTE KIDNEY FAILURE, UNSPECIFIED Status: Acute (2) Hypertensive urgency Code(s): I16.0 - HYPERTENSIVE URGENCY Status: Acute (3) Ischemic cerebrovascular accident (CVA) Code(s): I63.9 - CEREBRAL INFARCTION, UNSPECIFIED Status: Acute (4) Hypokalemia Code(s): E87.6 - HYPOKALEMIA Status: Resolved - Plan PT/OT, out of bed/ambulate Consult nephrology. DC lisinopril/HCTZ. BP improved. Continue aspirin and statin. Continue ASE protocol. Stress test normal. Pt awaiting insurance authorization for inpt rehab.
--- NOTE | 2019-04-12 19:28 | CON ---
DATE OF CONSULTATION: HISTORY OF PRESENT ILLNESS: Mr. Glover is a 68-year-old black male, who was initially admitted for dizziness. During the workup, he was found to have recent lacunar infarction, the right side of the abe - subacute. He also had an old lacunar infarction on the midline abe. He was initially noted to have some left facial asymmetry and left-sided weakness. We are now being consulted for his acute kidney injury. REVIEW OF SYSTEMS: Left facial weakness and left-sided weakness. No nausea. No vomiting. Positive for dizziness. No syncopal episode. No productive cough. No fever or chills. No hematemesis. No dysuria. No urinary frequency. No abdominal pain. Appetite and energy level are fair. No headache. No syncopal episode. MEDICATIONS: 1. Amlodipine 10 mg tablet once a day. 2. Aspirin 325 mg once a day. 3. Atorvastatin 40 mg tablet at bedtime. 4. Clonidine 0.1 mg q.4 p.r.n. 5. Lovenox 40 mg subcu daily. 6. Hydralazine 10 mg IV q.6 p.r.n. 7. Hydralazine 75 mg p.o. q.i.d. 8. Normal saline 100 mL/h. PAST MEDICAL HISTORY: 1. Hypertension - untreated. 2. Recent CVA - with left-sided weakness. PAST SURGICAL HISTORY: No significant surgeries. SOCIAL HISTORY: The patient is single, one child. Lives with one of his nephews. Occasionally smokes marijuana. No tobacco use. Alcohol 4 beers per night. No IV drug use. 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 Education, high school. No IV drug use. No blood transfusion. ALLERGIES: NONE. TRAUMA: None. IMMUNIZATIONS: Up-to-date. HOSPITALIZATIONS: Please see past medical history. FAMILY HISTORY: No family history of ESRD. PHYSICAL EXAMINATION: VITAL SIGNS: Blood pressure is 144/89, heart rate 76, respiratory rate 18, temperature 98, and pulse ox 99% on room air. GENERAL: Awake, alert, and comfortable, not in distress. SKIN: Adequate turgor. HEENT: Pinkish conjunctivae. Anicteric sclerae. NECK: No neck mass. No carotid bruits. No JVD. Positive for left facial weakness. HEART: Normal sinus rhythm. No murmur. No gallops. No rubs. ABDOMEN: Globular, soft, and nontender. No masses. LUNGS: Clear breath sounds. No wheezing. EXTREMITIES: No edema. No deformities. NEUROLOGIC: Positive for facial asymmetry. Positive left-sided weakness. Oriented to 3 spheres. LABORATORY DATA: Laboratories of April 12, 2019, white count 4.2 and hemoglobin 14.2. Sodium 136, potassium 3.9, chloride 104, carbon dioxide 25, BUN 30, creatinine 1.72, glucose 83, and calcium 8.9. April 10, 2019, creatinine 1.46. April 09, 2019, creatinine 1.12. April 11, 2019, stress test - cardiac, no acute ischemia - EF is 50%. April 08, 2019, cardiac echo showed normal EF of 60% to 65%. No vegetations noted. ASSESSMENT AND PLAN: 1. Acute kidney injury, consider hemodynamically-mediated dysfunction. Agree with empiric volume repletion. We will review urinalysis and renal ultrasound. There is no indication for any emergent hemodialysis with this patient. 2. Hypertension. Agree with current antihypertensive regimen. 3. Status post cerebrovascular accident with left-sided weakness. Continue supportive care. Physical therapy and possible rehab. Job ID: [id number]
[2019-04-12] MEDS: Atorvastatin Calcium 40 MG TAB PO SCH (21:05)
[2019-04-12] MEDS: ALPRAZolam 0.25 MG TAB PO PRN (21:05)
[2019-04-13 04:51] LABS: #Basophils 0.1 thou/uL (0.0-0.2); #Eosinphils 0.2 thou/uL (0.0-0.7); #Lymphocytes 1.1 thou/uL (1.20-3.40); #Monocytes 0.4 thou/uL (0.11-0.59); #Neutrophils 3.4 thou/uL (1.40-6.50); %Basophils 1.2 % (0.0-1.0); %Eosinophils 3.9 % (0.0-10.0); %Lymphocytes 21.5 % (21.0-51.0); %Monocytes 8.4 % (0.0-10.0); Hemoglobin 14.2 g/dL (14.0-18.0); Mean Corpuscular HGB CONC 32.5 g/dL (32.0-36.0); Mean Corpuscular Hemoglobin 26.7 pg (27.0-31.0); Mean Corpuscular Volume 82.1 fL (78.0-98.0); Mean Platelet Volume 8.4 fL (7.4-10.4); Platelet Count 132 thou/uL (130-400); RBC Distribution Width 12.7 % (11.5-14.5); Red Blood Cell (RBC) Count 5.32 mill/uL (4.70-6.10); White Blood Cell (WBC) Count 5.2 thou/uL (4.8-10.8)
[2019-04-13 05:19] LABS: Anion Gap 12 mmol/L (10-20); BUN (Urea Nitrogen) 26 mg/dL (8.4-25.7); Calc. Creatinine Clearance 55 mL/min (70-130); Calcium 8.7 mg/dL (7.8-10.44); Carbon Dioxide 21 mmol/L (23-31); Chloride 108 mmol/L (98-107); Estimated GFR-MDRD 61; Glucose 95 mg/dL (80-115); Potassium 3.9 mmol/L (3.5-5.1); Sodium 137 mmol/L (136-145)
[2019-04-13] MEDS: Enoxaparin Sodium 40 MG/0.4 ML SYRINGE SC SCH (07:46)
[2019-04-13] MEDS: Sodium Chloride 0.9% 1,000 ML IV SCH ×2 (07:46→20:53)
[2019-04-13] MEDS: hydrALAZINE 25 MG TAB PO SCH ×4 (07:46→20:54)
[2019-04-13] MEDS: Amlodipine 10 MG TAB PO SCH (07:48)
[2019-04-13] MEDS: Aspirin 325 mg Enteric Coated Tablet PO SCH (07:48)
--- NOTE | 2019-04-13 09:32 | ULT ---
RENAL ULTRASOUND: 04/13/2019 HISTORY: Acute renal failure. COMPARISON: None. TECHNIQUE: Multiplanar joyce-scale sonographic imaging of the kidneys and urinary bladder obtained. FINDINGS: The right kidney measures 10.6 x 4.1 x 4.7 cm and the left kidney measures 10.8 x 4.9 x 4.7 cm. There is no hydronephrosis noted on either side. There is a small cyst within the left kidney measuring 1.4 x 1.2 x 1.4 cm. The urinary bladder is grossly unremarkable with a volume of 167 mL. The prostate gland is mildly pro minent and heterogeneous, measuring 4.4 x 4.1 x 4.4 cm. IMPRESSION: No hydronephrosis. POS: [facility]
[2019-04-13 11:04] LABS: Bacteria/HPF None Seen HPF (None Seen); Bilirubin Negative (Negative); Blood, Urine Negative (Negative); Clarity Clear (Clear); Glucose, Urine (Dipstick) Normal (Negative); Leukocyte Negative Leu/uL (Negative); Nitrite Negative (Negative); Protein, Urine (Dipstick) Negative (Neg-Trace); Squamous Epithelial None Seen HPF (0-3); Urobilinogen Normal mg/dL (Less than 2); WBC/HPF 0-3 HPF (0-3)
[2019-04-13 11:18] LABS: Creatinine, Urine 169.98 mg/dL (63-166)
--- NOTE | 2019-04-13 11:24 | PRG ---
DATE OF SERVICE: 04/13/2019 SUBJECTIVE: Mr. Glover is a 68-year-old black male, who was admitted for an acute CVA and seen by the Renal Service for his acute kidney injury. At that time, we felt that he had hemodynamically-mediated renal dysfunction and was started on normal saline. Renal function slowly improving. No new complaints today except for the left-sided weakness. No complaints of chest pain or shortness of breath. OBJECTIVE: VITAL SIGNS: Blood pressure 170/99, heart rate 75, respiratory rate 18, temperature 98.4, pulse ox 100%. GENERAL: Awake, alert, comfortable, not in distress. SKIN: Adequate turgor. HEENT: He has pinkish conjunctivae. Anicteric sclerae. NECK: No neck mass. No carotid bruits. No JVD. CHEST: No deformities. LUNGS: Clear breath sounds. HEART: Normal sinus rhythm. No murmur. No gallops. No rubs. ABDOMEN: Globular, soft, nontender. No masses. EXTREMITIES: No edema. No deformities. NEUROLOGICAL: Left-sided weakness. DIAGNOSTIC DATA: Renal ultrasound of April 13, 2019, showed no hydronephrosis. No evidence of masses. LABORATORY DATA: Laboratories of April 13, 2019, white count 5.2, hemoglobin 14.2. Sodium 137, potassium 3.9, chloride 108, carbon dioxide 21, BUN 26, creatinine 1.4, calcium 8.7, glucose 95. Urinalysis pending. ASSESSMENT AND PLAN: 1. Acute kidney injury-consider hemodynamically-mediated renal dysfunction. Slowly improving with normal saline. Continue current IV fluid. There is no indication for any dialytic intervention. This patient need to be ruled out for an intrinsic renal problem. We will await further results of the urinalysis. 2. Status post cerebrovascular accident with left-sided weakness. Continue supportive care. Eventual rehab. 3. Hypertension. Continue current BP medications. The patient has been noted to be on amlodipine 10 mg tablet once a day. He is also on hydralazine at 75 mg p.o. q.i.d. Overall, agree with current management. Recheck basic metabolic profile in a.m. Job ID: [id number]
--- NOTE | 2019-04-13 12:00 | EKG ---
Test Reason : WEAKNESS Blood Pressure : / mmHG Vent. Rate : 063 BPM Atrial Rate : 063 BPM P-R Int : 142 ms QRS Dur : 100 ms QT Int : 416 ms P-R-T Axes : 001 -26 039 degrees QTc Int : 425 ms Sinus rhythm with Premature supraventricular complexes Possible Left atrial enlargement Left ventricular hypertrophy T wave abnormality, consider lateral ischemia Abnormal ECG Confirmed by JEFF JACK, FRANKIE ([id number]), greeting card editor SHEFALI MARCH ([id number]) on 04/13/2019 11:59:49 AM Referred By: JEFF Confirmed By:FRANKIE AGUILAR MD
--- NOTE | 2019-04-13 18:19 | PDOC.HOSPP ---
- Subjective Encounter Date: 04/13/19 Encounter Time: 18:15 Subjective: f/u for ischemic CVA with LUE weakness currently on ASA/Lipitor. No new complaints currently. - Objective Vital Signs & Weight: Vital Signs (12 hours) Temp Pulse Resp BP BP Pulse Ox 04/13/19 17:28 155/82 H 04/13/19 16:00 155/82 H 04/13/19 15:35 97.9 F 82 13 155/82 H 97 04/13/19 14:00 160/88 H 04/13/19 12:47 160/88 H 04/13/19 11:52 97.9 F 70 20 160/88 H 100 04/13/19 08:00 170/99 H 04/13/19 07:46 74 170/99 H 04/13/19 07:01 98.4 F 75 18 170/99 H 100 Weight Admit Weight 163 lb Weight 163 lb 12.855 oz Most Recent Monitor Data Heart Rate from ECG 75 NIBP 152/98 NIBP BP-Mean 116 Respiration from ECG 21 SpO2 100 I&O: 04/12/19 04/13/19 04/14/19 06:59 06:59 06:59 Intake Total 0 1585 Output Total 0 Balance 0 1585 Result Diagrams: 04/13/19 04:21 04/13/19 04:21 Additional Labs: Laboratory Tests 04/08/19 04/09/19 04/10/19 03:33 03:27 03:40 Creatinine 1.21 1.12 1.46 H Triglycerides 46 Cholesterol 155 LDL Cholesterol, Calc 69 HDL Cholesterol 77 04/12/19 04:37 Creatinine 1.72 H Triglycerides Cholesterol LDL Cholesterol, Calc HDL Cholesterol Radiology Reviewed by me: Yes (Renal sono - neg for hydronephrosis) EKG Reviewed by me: Yes (Tele - SR) Hospitalist ROS - Medication Medications: Active Medications Generic Name Dose Route Start Last Admin Trade Name Freq PRN Reason Stop Dose Admin Acetaminophen 650 mg 04/07/19 15:58 04/11/19 20:31 Tylenol PO 650 mg Q4H PRN Administration Headache/Fever/Mild Pain (1-3) Alprazolam 0.25 mg 04/08/19 14:40 04/12/19 21:05 Xanax PO 0.25 mg BIDPRN PRN Administration Anxiety Amlodipine Besylate 10 mg 04/11/19 09:00 04/13/19 07:48 Norvasc PO 10 mg DAILY MARY Administration Aspirin 325 mg 04/08/19 09:00 04/13/19 07:48 Ecotrin PO 325 mg DAILY MARY Administration Atorvastatin Calcium 40 mg 04/07/19 21:00 04/12/19 21:05 Lipitor PO 40 mg HS MARY Administration Enoxaparin Sodium 40 mg 04/08/19 09:00 04/13/19 07:46 Lovenox SC 40 mg 0900 MARY Administration Hydralazine HCl 10 mg 04/07/19 17:30 04/11/19 16:30 Apresoline SLOW IVP 10 mg Q6H PRN Administration SBP Greater Than 170 Hydralazine HCl 75 mg 04/11/19 21:00 04/13/19 17:28 Apresoline PO 75 mg QID MARY Administration Sodium Chloride 1,000 mls @ 100 mls/hr 04/12/19 09:15 04/13/19 07:46 Normal Saline 0.9% IV 1,000 mls .Q10H MARY Administration - Exam General Appearance: NAD, awake alert Eye: PERRL, anicteric sclera ENT: normocephalic atraumatic, no oropharyngeal lesions Neck: supple, symmetric, no JVD, no thyromegaly, no lymphadenopathy Heart: RRR, no murmur, no gallops, no rubs, normal peripheral pulses Respiratory: CTAB, no wheezes, no rales, no ronchi Gastrointestinal: soft, non-tender, non-distended, normal bowel sounds, no palpable masses Extremities: no cyanosis, no clubbing, no edema Skin: normal turgor, no lesions Neurological: no new deficit Neurological - other findings: L hemiparesis Psychiatric: normal affect, normal behavior, A&O x 3 Hosp A/P (1) Ischemic cerebrovascular accident (CVA) Code(s): I63.9 - CEREBRAL INFARCTION, UNSPECIFIED Status: Acute Plan: Continue routine stroke protocol, awaiting inpt rehab approval, continue ASA/ Lipitor (2) Acute kidney injury superimposed on CKD Code(s): N17.9 - ACUTE KIDNEY FAILURE, UNSPECIFIED; N18.9 - CHRONIC KIDNEY DISEASE, UNSPECIFIED Status: Acute Plan: Likely iatrogenic in conjunction with CKD, stable currently, avoid nephrotoxic meds and limit contrast (3) HTN (hypertension) Code(s): I10 - ESSENTIAL (PRIMARY) HYPERTENSION Status: Chronic Qualifiers: Hypertension type: essential hypertension Qualified Code(s): I10 - Essential (primary) hypertension Plan: Labile, titrate BP regimen for optimal response (4) Hypokalemia Code(s): E87.6 - HYPOKALEMIA Status: Acute Plan: Serial monitoring - Plan 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
[2019-04-13] MEDS: Atorvastatin Calcium 40 MG TAB PO SCH (20:54)
[2019-04-13] MEDS: ALPRAZolam 0.25 MG TAB PO PRN (20:54)
[2019-04-14 05:39] LABS: Anion Gap 12 mmol/L (10-20); BUN (Urea Nitrogen) 21 mg/dL (8.4-25.7); Calc. Creatinine Clearance 63 mL/min (70-130); Calcium 8.3 mg/dL (7.8-10.44); Carbon Dioxide 20 mmol/L (23-31); Chloride 111 mmol/L (98-107); Estimated GFR-MDRD 72; Glucose 100 mg/dL (80-115); Potassium 3.8 mmol/L (3.5-5.1); Sodium 139 mmol/L (136-145)
[2019-04-14 06:00] LABS: #Eosinphils 0.2 thou/uL (0.0-0.7); #Lymphocytes 1.3 thou/uL (1.20-3.40); #Monocytes 0.5 thou/uL (0.11-0.59); #Neutrophils 2.4 thou/uL (1.40-6.50); %Basophils 0.7 % (0.0-1.0); %Eosinophils 4.4 % (0.0-10.0); %Lymphocytes 28.7 % (21.0-51.0); %Monocytes 10.5 % (0.0-10.0); %Neutrophils 55.7 % (42.0-75.0); Hemoglobin 13.6 g/dL (14.0-18.0); Mean Corpuscular HGB CONC 33.3 g/dL (32.0-36.0); Mean Platelet Volume 8.3 fL (7.4-10.4); Platelet Count 113 thou/uL (130-400); Platelet Morphology Comment Appears Decreased; RBC Distribution Width 12.5 % (11.5-14.5); Red Blood Cell (RBC) Count 4.87 mill/uL (4.70-6.10); White Blood Cell (WBC) Count 4.4 thou/uL (4.8-10.8)
[2019-04-14] MEDS: Sodium Chloride 0.9% 1,000 ML IV SCH ×2 (07:48→18:16)
[2019-04-14] MEDS: hydrALAZINE 25 MG TAB PO SCH ×3 (08:02→21:15)
[2019-04-14] MEDS: Aspirin 325 mg Enteric Coated Tablet PO SCH (08:02)
[2019-04-14] MEDS: Amlodipine 10 MG TAB PO SCH (08:02)
[2019-04-14] MEDS: Enoxaparin Sodium 40 MG/0.4 ML SYRINGE SC SCH (08:02)
[2019-04-14] MEDS ORDERED: hydrALAZINE 25 MG TAB PO SCH (10:45)
--- NOTE | 2019-04-14 11:18 | PRG ---
DATE OF SERVICE: 04/14/2019 SUBJECTIVE: Mr. Glover is a 68-year-old black male, who was admitted for CVA and seen by the Renal Service for an acute kidney injury. Acute kidney injury was a hemodynamically-mediated renal dysfunction. Currently, on normal saline. Renal function is much improved. Blood pressure has also been labile. He is awaiting rehab placement. No other complaints today. No chest pain or shortness of breath. OBJECTIVE: VITAL SIGNS: Blood pressure 185/97, heart rate 72, respiratory rate 16, temperature 99.5, and pulse ox 100%. GENERAL: Noted to be awake, alert, comfortable, not in overt distress. SKIN: Adequate turgor. HEENT: He has pinkish conjunctivae. Anicteric sclerae. NECK: No neck mass. No carotid bruits. No JVD. CHEST: No deformities. LUNGS: Clear breath sounds. No wheezing. No crackles. HEART: Normal sinus rhythm. No murmur. No gallops. No rubs. ABDOMEN: Globular, soft, and nontender. No masses. EXTREMITIES: No edema. No deformities. MEDICATIONS: Medications of April 14, 2019, reviewed. LABORATORY DATA: Laboratories of April 14, 2019, white count 4.4 and hemoglobin 13.6. Sodium 139, potassium 3.8, chloride 111, carbon dioxide 20, BUN 21, creatinine 1.22, and calcium 8.3. ASSESSMENT AND PLAN: 1. Acute kidney injury, much improved with IV hydration. We will consider this, continue current IV fluid. Creatinine is now noted at 1.22 at normal range. 2. Labile hypertension. I adjusted hydralazine to 100 mg tablet one tablet t.i.d. and added metoprolol succinate 25 mg once a day. Due to the much improved renal function, we will be signing off. Please recall if needed. Job ID: [id number]
[2019-04-14] MEDS: hydrALAZINE 20 MG/ML VIAL SLOW IVP PRN (12:06)
[2019-04-14] MEDS: Acetaminophen 325 MG TAB PO PRN (15:33)
--- NOTE | 2019-04-14 16:14 | PDOC.HOSPP ---
- Subjective Encounter Date: 04/14/19 Encounter Time: 16:10 Subjective: f/u for CVA with L hemiparesis receiving ASA/Lipitor. Working LUE with own exercises. No new complaints. - Objective Vital Signs & Weight: Vital Signs (12 hours) Temp Pulse Resp BP BP BP Pulse Ox 04/14/19 15:33 66 184/97 H 04/14/19 15:03 99 F 66 16 184/97 H 100 04/14/19 12:06 66 182/100 H 04/14/19 12:01 182/100 H 04/14/19 11:40 99.5 F 66 16 182/100 H 100 04/14/19 08:10 100 04/14/19 08:05 185/97 H 04/14/19 08:02 72 185/97 H 04/14/19 07:31 99.5 F 72 16 185/97 H 100 04/14/19 04:25 98.1 F 72 16 170/84 H 99 Weight Admit Weight 163 lb Weight 163 lb 12.855 oz Most Recent Monitor Data Heart Rate from ECG 75 NIBP 152/98 NIBP BP-Mean 116 Respiration from ECG 21 SpO2 100 I&O: 04/13/19 04/14/19 04/15/19 06:59 06:59 06:59 Intake Total 2585 600 Balance 2585 600 Result Diagrams: 04/14/19 04:48 04/14/19 04:48 Additional Labs: Laboratory Tests 04/08/19 04/09/19 04/10/19 03:33 03:27 03:40 BUN Creatinine 1.21 1.12 1.46 H Triglycerides 46 Cholesterol 155 LDL Cholesterol, Calc 69 HDL Cholesterol 77 04/12/19 04/13/19 04:37 04:21 BUN 26 H Creatinine 1.72 H 1.40 H Triglycerides Cholesterol LDL Cholesterol, Calc HDL Cholesterol EKG Reviewed by me: Yes (Tele - SR) Hospitalist ROS - Medication Medications: Active Medications Generic Name Dose Route Start Last Admin Trade Name Freq PRN Reason Stop Dose Admin Acetaminophen 650 mg 04/07/19 15:58 04/14/19 15:33 Tylenol PO 650 mg Q4H PRN Administration Headache/Fever/Mild Pain (1-3) Alprazolam 0.25 mg 04/08/19 14:40 04/13/19 20:54 Xanax PO 0.25 mg BIDPRN PRN Administration Anxiety Amlodipine Besylate 10 mg 04/11/19 09:00 04/14/19 08:02 Norvasc PO 10 mg DAILY MARY Administration Aspirin 325 mg 04/08/19 09:00 04/14/19 08:02 Ecotrin PO 325 mg DAILY MARY Administration Atorvastatin Calcium 40 mg 04/07/19 21:00 04/13/19 20:54 Lipitor PO 40 mg HS MARY Administration Enoxaparin Sodium 40 mg 04/08/19 09:00 04/14/19 08:02 Lovenox SC 40 mg 0900 MARY Administration Hydralazine HCl 10 mg 04/07/19 17:30 04/14/19 12:06 Apresoline SLOW IVP 10 mg Q6H PRN Administration SBP Greater Than 170 Hydralazine HCl 100 mg 04/14/19 15:00 04/14/19 15:33 Apresoline PO 100 mg TID MARY Administration Sodium Chloride 1,000 mls @ 100 mls/hr 04/12/19 09:15 04/14/19 07:48 Normal Saline 0.9% IV 1,000 mls .Q10H MARY Administration - Exam General Appearance: NAD, awake alert Eye: PERRL, anicteric sclera ENT: normocephalic atraumatic, no oropharyngeal lesions Neck: supple, symmetric, no JVD, no thyromegaly, no lymphadenopathy Heart: RRR, no murmur, no gallops, no rubs, normal peripheral pulses Respiratory: CTAB, no wheezes, no rales, no ronchi, normal chest expansion Gastrointestinal: soft, non-tender, non-distended, normal bowel sounds Extremities: no cyanosis, no clubbing, no edema Skin: normal turgor, no lesions Neurological: no new deficit Neurological - other findings: L hemiparesis Psychiatric: normal affect, A&O x 3 Hosp A/P (1) Ischemic cerebrovascular accident (CVA) Code(s): I63.9 - CEREBRAL INFARCTION, UNSPECIFIED Status: Acute Plan: Continue ASA/Lipitor, general stroke protocol, awaiting inpt rehab approval (2) Acute kidney injury superimposed on CKD Code(s): N17.9 - ACUTE KIDNEY FAILURE, UNSPECIFIED; N18.9 - CHRONIC KIDNEY DISEASE, UNSPECIFIED Status: Acute Plan: Resolving, avoid nephrotoxic meds and limit contrast exposure, appreciate Nephrology assistance (3) HTN (hypertension) Code(s): I10 - ESSENTIAL (PRIMARY) HYPERTENSION Status: Chronic Qualifiers: Hypertension type: essential hypertension Qualified Code(s): I10 - Essential (primary) hypertension Plan: Labile, titrate BP regimen to clinical response (4) Hypokalemia Code(s): E87.6 - HYPOKALEMIA Status: Acute Plan: Resolved - Plan old records reviewed/req, PT/OT, social work assistant, out of bed/ambulate, DVT proph w/SCDs Stable overall Continue ASA/Lipitor Stroke protocol PT/OT for mobilization Await insurance approval for inpt rehab Likely transition to rehab in 24h
[2019-04-14] MEDS: Atorvastatin Calcium 40 MG TAB PO SCH (21:14)
[2019-04-14] MEDS: ALPRAZolam 0.25 MG TAB PO PRN (21:19)
[2019-04-15] MEDS: Sodium Chloride 0.9% 1,000 ML IV SCH ×2 (05:25→14:37)
[2019-04-15] MEDS: Amlodipine 10 MG TAB PO SCH (08:25)
[2019-04-15] MEDS: Aspirin 325 mg Enteric Coated Tablet PO SCH (08:26)
[2019-04-15] MEDS: Enoxaparin Sodium 40 MG/0.4 ML SYRINGE SC SCH (08:26)
[2019-04-15] MEDS: hydrALAZINE 25 MG TAB PO SCH ×3 (08:26→20:52)
--- NOTE | 2019-04-15 16:35 | PDOC.HOSPP ---
- Subjective Encounter Date: 04/15/19 Encounter Time: 16:30 Subjective: f/u for isch CVA with L hemiparesis. Ambulating with PT and CGA using RW. No new complaints. - Objective Vital Signs & Weight: Vital Signs (12 hours) Temp Pulse Pulse Pulse Resp BP BP 04/15/19 16:01 176/87 H 04/15/19 15:50 176/87 H 04/15/19 15:43 97.7 F 60 16 04/15/19 14:39 165/89 H 04/15/19 12:05 165/89 H 04/15/19 11:52 97.7 F 61 16 04/15/19 09:15 57 L 61 177/91 H 04/15/19 08:26 61 181/94 H 04/15/19 08:25 61 181/94 H 04/15/19 08:05 181/94 H 04/15/19 08:00 98.4 F 61 16 04/15/19 07:20 04/15/19 06:00 50 L BP BP Pulse Ox 04/15/19 16:01 04/15/19 15:50 04/15/19 15:43 176/87 H 100 04/15/19 14:39 04/15/19 12:05 04/15/19 11:52 165/89 H 100 04/15/19 09:15 168/89 H 04/15/19 08:26 04/15/19 08:25 04/15/19 08:05 04/15/19 08:00 181/94 H 100 04/15/19 07:20 97 04/15/19 06:00 156/77 H Weight Admit Weight 163 lb Weight 163 lb 12.855 oz Most Recent Monitor Data Heart Rate from ECG 75 NIBP 152/98 NIBP BP-Mean 116 Respiration from ECG 21 SpO2 100 I&O: 04/14/19 04/15/19 04/16/19 06:59 06:59 06:59 Intake Total 2585 2286 600 Balance 2585 2286 600 Result Diagrams: 04/14/19 04:48 04/14/19 04:48 Additional Labs: Laboratory Tests 04/08/19 04/09/19 04/10/19 03:33 03:27 03:40 BUN Creatinine 1.21 1.12 1.46 H Triglycerides 46 Cholesterol 155 LDL Cholesterol, Calc 69 HDL Cholesterol 77 04/12/19 04/13/19 04:37 04:21 BUN 26 H Creatinine 1.72 H 1.40 H Triglycerides Cholesterol LDL Cholesterol, Calc HDL Cholesterol EKG Reviewed by me: Yes (Tele - SR) Hospitalist ROS - Medication Medications: Active Medications Generic Name Dose Route Start Last Admin Trade Name Freq PRN Reason Stop Dose Admin Acetaminophen 650 mg 04/07/19 15:58 04/14/19 15:33 Tylenol PO 650 mg Q4H PRN Administration Headache/Fever/Mild Pain (1-3) Alprazolam 0.25 mg 04/08/19 14:40 04/14/19 21:19 Xanax PO 0.25 mg BIDPRN PRN Administration Anxiety Amlodipine Besylate 10 mg 04/11/19 09:00 04/15/19 08:25 Norvasc PO 10 mg DAILY MARY Administration Aspirin 325 mg 04/08/19 09:00 04/15/19 08:26 Ecotrin PO 325 mg DAILY MARY Administration Atorvastatin Calcium 40 mg 04/07/19 21:00 04/14/19 21:14 Lipitor PO 40 mg HS MARY Administration Clonidine 0.1 mg 04/11/19 18:02 04/15/19 15:50 Catapres PO 0.1 mg Q4H PRN Administration SBP Greater Than 180 Enoxaparin Sodium 40 mg 04/08/19 09:00 04/15/19 08:26 Lovenox SC 40 mg 0900 MARY Administration Hydralazine HCl 10 mg 04/07/19 17:30 04/14/19 12:06 Apresoline SLOW IVP 10 mg Q6H PRN Administration SBP Greater Than 170 Hydralazine HCl 100 mg 04/14/19 15:00 04/15/19 14:39 Apresoline PO 100 mg TID MARY Administration Sodium Chloride 1,000 mls @ 100 mls/hr 04/12/19 09:15 04/15/19 14:37 Normal Saline 0.9% IV 1,000 mls .Q10H MARY Administration Metoprolol Succinate 25 mg 04/15/19 09:00 04/15/19 08:26 Toprol Xl PO 25 mg DAILY MARY Administration - Exam General Appearance: NAD, awake alert Eye: PERRL, anicteric sclera ENT: normocephalic atraumatic, no oropharyngeal lesions Neck: supple, symmetric, no JVD, no thyromegaly Heart: RRR, no gallops, no rubs, normal peripheral pulses Respiratory: CTAB, no wheezes, no rales, no ronchi, normal chest expansion Gastrointestinal: soft, non-tender, non-distended, normal bowel sounds Extremities: no cyanosis, no clubbing, no edema Skin: normal turgor, no lesions Neurological: no new deficit Neurological - other findings: L hemiparesis, mild dysarthria Psychiatric: normal affect, A&O x 3 Hosp A/P (1) Ischemic cerebrovascular accident (CVA) Code(s): I63.9 - CEREBRAL INFARCTION, UNSPECIFIED Status: Acute Plan: Continue ASA/Lipitor, general stroke protocol (2) Acute kidney injury superimposed on CKD Code(s): N17.9 - ACUTE KIDNEY FAILURE, UNSPECIFIED; N18.9 - CHRONIC KIDNEY DISEASE, UNSPECIFIED Status: Acute Plan: Resolving with volume replacement, avoid nephrotoxic meds and limit contrast exposure (3) HTN (hypertension) Code(s): I10 - ESSENTIAL (PRIMARY) HYPERTENSION Status: Chronic Qualifiers: Hypertension type: essential hypertension Qualified Code(s): I10 - Essential (primary) hypertension Plan: Labile, increase Metoprolol 50mg daily, continue Amlodipine/Hydralazine, saline lock IVF's (4) Hypokalemia Code(s): E87.6 - HYPOKALEMIA Status: Acute - Plan PT/OT, social service liaison, out of bed/ambulate, DVT proph w/SCDs Stable overall Continue ASA/Lipitor Stroke protocol PT/OT for mobilization Await insurance approval for inpt rehab Likely transition to rehab in 24h Saline lock IVF's
[2019-04-15] MEDS: Atorvastatin Calcium 40 MG TAB PO SCH (20:52)
[2019-04-15] MEDS: ALPRAZolam 0.25 MG TAB PO PRN (21:00)
[2019-04-16] MEDS: Aspirin 325 mg Enteric Coated Tablet PO SCH (08:16)
[2019-04-16] MEDS: hydrALAZINE 25 MG TAB PO SCH ×3 (08:17→20:11)
[2019-04-16] MEDS: Enoxaparin Sodium 40 MG/0.4 ML SYRINGE SC SCH (08:17)
[2019-04-16] MEDS: Amlodipine 10 MG TAB PO SCH (08:17)
[2019-04-16] MEDS ORDERED: Lisinopril 10 MG TAB PO SCH (09:30)
--- NOTE | 2019-04-16 09:42 | STRESS ---
Acquisition Time: 2019-04-12 08:25:23 Total Exercise Time: 00:01:00 Test Indications: CHEST PAIN Medications: Protocol: LEXISCAN Max HR: 109 BPM 70% of Pred: 154 BPM Max BP: 158/088 mmHG Max Work Load: 1.0 METS RESTING ECG: NORMAL SINUS RHYTHM AT 62 BPM SYMPTOMS: SOB, CHEST PAIN APPROPRIATE BP RESPONSE FOR LEXISCAN ECTOPY: NONE ECG STRESS: INDETERMINATE WITH O.5MM ST DEPRESSION/AWAIT NUCLEAR IMAGES FOR DEFINITIVE DIAGNOSIS Confirmed by JONO HERNANDEZ ([id number]), photo editor SUSHIL ANN ([id number]) on 04/16/2019 9:42:15 AM Referred By: Confirmed By:JONO HERNANDEZ
--- NOTE | 2019-04-16 15:58 | PDOC.HOSPP ---
- Subjective Encounter Date: 04/16/19 Encounter Time: 15:50 Subjective: f/u for CVA with L hemiparesis. Moving better when ambulating with PT. Plan for inpt rehab in next 24h. - Objective Vital Signs & Weight: Vital Signs (12 hours) Temp Pulse Pulse Pulse Resp BP BP 04/16/19 15:40 98.6 F 57 L 16 04/16/19 15:24 75 04/16/19 11:42 98.4 F 55 L 16 04/16/19 10:06 164/91 H 04/16/19 09:02 55 L 63 162/83 H 04/16/19 08:17 47 L 04/16/19 07:49 98.4 F 47 L 16 04/16/19 04:00 97.9 F 51 L 16 164/91 H BP BP Pulse Ox 04/16/19 15:40 189/90 H 100 04/16/19 15:24 04/16/19 11:42 138/77 97 04/16/19 10:06 04/16/19 09:02 161/79 H 04/16/19 08:17 04/16/19 07:49 161/92 H 98 04/16/19 04:00 164/91 H 99 Weight Admit Weight 163 lb Weight 163 lb 12.855 oz Most Recent Monitor Data Heart Rate from ECG 75 NIBP 152/98 NIBP BP-Mean 116 Respiration from ECG 21 SpO2 100 I&O: 04/15/19 04/16/19 04/17/19 06:59 06:59 06:59 Intake Total 2286 1180 240 Balance 2286 1180 240 Result Diagrams: 04/14/19 04:48 04/14/19 04:48 EKG Reviewed by me: Yes (Tele - SR) Hospitalist ROS - Medication Medications: Active Medications Generic Name Dose Route Start Last Admin Trade Name Freq PRN Reason Stop Dose Admin Acetaminophen 650 mg 04/07/19 15:58 04/14/19 15:33 Tylenol PO 650 mg Q4H PRN Administration Headache/Fever/Mild Pain (1-3) Alprazolam 0.25 mg 04/08/19 14:40 04/15/19 21:00 Xanax PO 0.25 mg BIDPRN PRN Administration Anxiety Amlodipine Besylate 10 mg 04/11/19 09:00 04/16/19 08:17 Norvasc PO 10 mg DAILY MARY Administration Aspirin 325 mg 04/08/19 09:00 04/16/19 08:16 Ecotrin PO 325 mg DAILY MARY Administration Atorvastatin Calcium 40 mg 04/07/19 21:00 04/15/19 20:52 Lipitor PO 40 mg HS MARY Administration Clonidine 0.1 mg 04/11/19 18:02 04/15/19 15:50 Catapres PO 0.1 mg Q4H PRN Administration SBP Greater Than 180 Enoxaparin Sodium 40 mg 04/08/19 09:00 04/16/19 08:17 Lovenox SC 40 mg 0900 MARY Administration Hydralazine HCl 10 mg 04/07/19 17:30 04/14/19 12:06 Apresoline SLOW IVP 10 mg Q6H PRN Administration SBP Greater Than 170 Hydralazine HCl 100 mg 04/14/19 15:00 04/16/19 15:24 Apresoline PO 100 mg TID MARY Administration Metoprolol Succinate 50 mg 04/16/19 09:00 04/16/19 09:36 Toprol Xl PO Not Given DAILY MARY Sodium Chloride 10 ml 04/07/19 15:58 04/16/19 08:19 Flush - Normal Saline IVF 10 ml PRN PRN Administration Saline Flush - Exam General Appearance: NAD, awake alert Eye: PERRL, anicteric sclera ENT: normocephalic atraumatic, no oropharyngeal lesions Neck: supple, symmetric, no JVD, no thyromegaly Heart: RRR, no murmur, no gallops, no rubs, normal peripheral pulses Respiratory: CTAB, no wheezes, no rales, no ronchi, normal chest expansion Gastrointestinal: soft, non-tender, non-distended, normal bowel sounds, no palpable masses Extremities: no cyanosis, no clubbing, no edema Skin: normal turgor, no lesions Neurological: cranial nerve grossly intact, no new deficit Neurological - other findings: L hemiparesis, mild dysarthria Psychiatric: normal affect, A&O x 3 Hosp A/P (1) Ischemic cerebrovascular accident (CVA) Code(s): I63.9 - CEREBRAL INFARCTION, UNSPECIFIED Status: Acute Plan: Continue ASA/Lipitor, general stroke protocol (2) Acute kidney injury superimposed on CKD Code(s): N17.9 - ACUTE KIDNEY FAILURE, UNSPECIFIED; N18.9 - CHRONIC KIDNEY DISEASE, UNSPECIFIED Status: Acute Plan: Resolved (3) HTN (hypertension) Code(s): I10 - ESSENTIAL (PRIMARY) HYPERTENSION Status: Chronic Qualifiers: Hypertension type: essential hypertension Qualified Code(s): I10 - Essential (primary) hypertension Plan: Labile, titrate BP regimen to clinical response (4) Sinus bradycardia Code(s): R00.1 - BRADYCARDIA, UNSPECIFIED Status: Acute Plan: Iatrogenic, decrease Metoprolol 25mg daily (5) Hypokalemia Code(s): E87.6 - HYPOKALEMIA Status: Acute - Plan plan discussed w/ family, PT/OT, social media campaign manager, out of bed/ambulate, DVT proph w/SCDs Stable overall Continue ASA/Lipitor Stroke protocol PT/OT for mobilization Await insurance approval for inpt rehab, plan for transfer in 24h Saline lock IVF's
[2019-04-16] MEDS: Atorvastatin Calcium 40 MG TAB PO SCH (20:11)
[2019-04-16] MEDS: ALPRAZolam 0.25 MG TAB PO PRN (20:12)
[2019-04-17 07:12] VITALS: TEMP 98
[2019-04-17] MEDS ORDERED: Lisinopril 10 MG TAB PO SCH (09:00)
[2019-04-17] MEDS: Aspirin 325 mg Enteric Coated Tablet PO SCH (09:06)
[2019-04-17] MEDS: Amlodipine 10 MG TAB PO SCH (09:07)
[2019-04-17] MEDS: hydrALAZINE 25 MG TAB PO SCH (09:07)
[2019-04-17] MEDS: Enoxaparin Sodium 40 MG/0.4 ML SYRINGE SC SCH (09:21)
[2019-04-17 10:44] VITALS: BP 161/89
--- NOTE | 2019-04-17 10:59 | DIS ---
DATE OF ADMISSION: 04/07/2019 DATE OF DISCHARGE: 04/17/2019 DISCHARGE DIAGNOSES: 1. Right abe ischemic cerebrovascular accident with left hemiparesis. 2. Dysarthria secondary to right abe ischemic cerebrovascular accident with left hemiparesis, improved. 3. Acute kidney injury on chronic kidney disease, improved. 4. Hypertension, labile. 5. Sinus bradycardia, resolving. 6. Hypokalemia, resolved. CONSULTATIONS: 1. Dr. Dyson with Nephrology Service. 2. Dr. Gray with Neurology Service. 3. Dr. Bower with Pulmonology Service. PERTINENT LABORATORY AND X-RAY FINDINGS: Creatinine ranged between 1.12 to 1.72. Estimated GFR ranged between 48 to 73. Total cholesterol 155, triglycerides 46, HDL 77, and LDL 69. Troponin I ranged between 0.137 to 0.145. CBC within normal limits. CT of the brain without contrast dated 04/07/2019, showed no acute intracranial process. CT angiogram of the [place] dated 04/07/2019, showed no hemodynamically significant stenosis, thrombosis, or aneurysm. MRI of the brain dated 04/08/2019, showed right abe ischemic CVA with recent lacunar infarction. Old lacunar infarct at midline abe. 2D transthoracic echocardiogram dated 04/08/2019, showed ejection fraction of 60% to 65%. Diastolic dysfunction. [id number] mitral regurgitation. Cardiolite stress test dated 04/10/2019, showed normal myocardial perfusion scan with calculated ejection fraction of 50%. Renal ultrasound dated 04/13/2019, showed no evidence of hydronephrosis. HOSPITAL COURSE: The patient, who initially presented with word-finding difficulty, dysarthria, and left-sided arm weakness. The patient was also complaining of dizziness, prompting evaluation including CT imaging of the brain. The patient's initial CT was negative for acute intracranial process. However, the patient's symptoms consistent with acute CVA with MRI confirming evidence of infarction in the right abe with associated left hemiparesis. The patient was also initially managed for hypertensive urgency with blood pressures in the 219/119 range. The patient was placed on a Cardene infusion and managed in the critical care unit. The patient's overall blood pressure trend improved and the patient was transferred to the Stroke Unit, undergoing general stroke protocol. The patient continued on aspirin 325 mg daily in addition to Lipitor 40 mg at bedtime. The patient was titrated on his blood pressure regimen with overall improved trend; however, will need additional titration on an ongoing basis after discharge. The patient underwent a cardiac evaluation due to elevated troponin I; however, myocardial perfusion scan showed no evidence of ischemia with overall calculated ejection fraction of 50%. Due to the neurologic deficits from the CVA, the patient was deemed an appropriate candidate for ongoing inpatient rehabilitation and has been approved to transfer to [facility] on 04/17/2019. I have examined the patient at the time of discharge and discussed followup instructions. The patient verbalized understanding and in agreement and ready for transfer on 04/17/2019. DISCHARGE MEDICATIONS: 1. Xanax 0.25 mg p.o. b.i.d. p.r.n. 2. Norvasc 10 mg p.o. daily. 3. Enteric-coated aspirin 325 mg p.o. daily. 4. Lipitor 40 mg p.o. at bedtime. 5. Clonidine 0.1 mg p.o. q.4 hours as needed for systolic blood pressure greater than or equal to 180. 6. Hydralazine 100 mg p.o. t.i.d. 7. Lisinopril 10 mg p.o. daily. 8. Metoprolol-XL 25 mg p.o. daily. FOLLOWUP: The patient may follow up with Dr. Gray with Neurology Service after discharge from inpatient rehabilitation. The patient may also establish with a local primary care provider and will establish after discharge from inpatient rehabilitation. CONDITION ON DISCHARGE: Stable. ACTIVITY: Ad champ, rolling walker with standby assistance. DIET: Heart healthy. CODE STATUS: Full. DISPOSITION: Discharged to [facility] on 04/17/2019. TIME SPENT: Total time preparing and coordinating discharge, 35 minutes. Job ID: [id number]
== END 2019-04-17 13:27 | DRG 65 ==
LOC: ERS 13:14 → CCU 16:51 → 2SE 04-11 11:23
PROVIDERS: ADMIT Internal Medicine; ATTEND Internal Medicine
PROC: B020ZZZ Computerized Tomography (CT Scan) of Brain (ICD-10-PCS; 2019-04-07)
PROC: B030ZZZ Magnetic Resonance Imaging (MRI) of Brain (ICD-10-PCS; principal; 2019-04-08)
PROC: 3E0234Z Introduction of Serum, Toxoid and Vaccine into Muscle, Percutaneous Approach (ICD-10-PCS; 2019-04-08)
DX: I63.89 Other cerebral infarction (principal); G81.94 Hemiplegia, unspecified affecting left nondominant side; N17.9 Acute kidney failure, unspecified; I16.0 Hypertensive urgency; R40.2412 Glasgow coma scale score 13-15, at arrival to emergency department; R29.704 NIHSS score 4; I12.9 Hypertensive chronic kidney disease with stage 1 through stage 4 chronic kidney disease, or unspecified chronic kidney disease; N18.9 Chronic kidney disease, unspecified; Z23 Encounter for immunization; I10 Essential (primary) hypertension; F12.90 Cannabis use, unspecified, uncomplicated; E87.6 Hypokalemia; R47.1 Dysarthria and anarthria; R00.1 Bradycardia, unspecified
CPT/HCPCS: 36415; 36416; 70450; 70496; 70498; 70551; 76770; 78452; 80048; 80053; 80061; 81001; 82553; 82570; 84300; 84484; 85025; 85610; 85730; 90471; 90670; 93005; 93017; 93306; 96365; 96366; A9500; G0009; J0360; J1650; J2785; J7050; Q9967

== ENCOUNTER 2021-05-21 10:30 | Outpatient (CLI) | payer BC | END 2021-05-21 10:31 | disposition home or self-care (01) | LOC: NM 10:30 | PROVIDERS: ATTEND Urology | DX: C61 Malignant neoplasm of prostate (principal) | CPT/HCPCS: 78306; A9503 ==

== ENCOUNTER 2021-05-24 13:47 | Outpatient (CLI) | payer BC | END 2021-05-24 13:48 | disposition home or self-care (01) | LOC: TBSIIMAG 13:47 | PROVIDERS: ATTEND Urology | DX: C61 Malignant neoplasm of prostate (principal) | CPT/HCPCS: 72197; 82565 ==

== ENCOUNTER 2021-08-16 13:00 | Inpatient (IN) | payer OTHER, BC, MEDICARE ==
[2021-08-17 12:38] VITALS: BMI 28.1
[2021-08-17 15:12] LABS: Hemoglobin 11.8 g/dL (13.5-17.5); Mean Corpuscular HGB CONC 31.4 g/dL (32.0-36.0); Mean Corpuscular Hemoglobin 26.3 pg (27.0-33.0); Mean Corpuscular Volume 83.7 fl (81.2-95.1); Mean Platelet Volume 10.4 fl (7.4-10.4); Platelet Count 140 10x3/uL (150-450); RBC Distribution Width 13.4 % (11.5-14.5); Red Blood Cell (RBC) Count 4.49 10x6/uL (4.32-5.72); White Blood Cell (WBC) Count 4.8 10x3/uL (3.5-10.5)
[2021-08-17 15:31] LABS: INR-International Normal Ratio 1.1; PTT 23.5 sec (22.0-33.0); Prothrombin Time 11.7 sec (9.5-12.1)
[2021-08-17 15:32] LABS: ALT (SGPT) 14 U/L (8-55); AST (SGOT) 22 U/L (5-34); Albumin 4.2 g/dL (3.4-4.8); Alkaline Phosphatase 56 U/L (40-110); Anion Gap 13 mmol/L (10-20); BUN (Urea Nitrogen) 26 mg/dL (8.4-25.7); Bilirubin, Total 0.4 mg/dL (0.2-1.2); Calc. Creatinine Clearance 0 mL/min (70-130); Calcium 9.1 mg/dL (7.8-10.44); Carbon Dioxide 27 mmol/L (23-31); Chloride 104 mmol/L (98-107); Globulin 2.8 g/dL (2.4-3.5); Glucose 115 mg/dL (80-115); Potassium 3.8 mmol/L (3.5-5.1); Sodium 140 mmol/L (136-145)
[2021-08-17 15:45] LABS: Bilirubin Neg (Negative); Blood, Urine Negative (Negative); Clarity Clear (Clear); Glucose, Urine (Dipstick) Normal (Negative); Ketone, Urine Negative (Negative); Leukocyte Negative (Negative); Nitrite Negative (Negative); Protein, Urine (Dipstick) Negative (Neg-Trace); pH, Urine 6.5 (5.0-9.0)
[2021-08-17 15:56] LABS: RBC/HPF 0-3 HPF (0-3); Squamous Epithelial 0-3 HPF (0-3); WBC/HPF 0-3 HPF (0-3)
[2021-08-17 15:59] LABS: Bacteria/HPF Rare-Few HPF (None Seen)
[2021-08-17 16:00] LABS: Mucous/LPF Rare LPF (<2+)
[2021-08-19] MEDS ORDERED: fentaNYL Citrate/PF 100 MCG/2 ML SYRINGE ONE (06:31)
[2021-08-19] MEDS ORDERED: B & O ONE (06:51)
[2021-08-19] MEDS ORDERED: Midazolam HCl 2 mg/2 ml Vial ONE ×2 (07:02→07:04)
[2021-08-19] MEDS ORDERED: Fentanyl 100 MCG/2 ML VIAL ONE (07:04)
[2021-08-19] MEDS ORDERED: Lidocaine 1% (PF) 30 ML VIAL ONE (07:05)
[2021-08-19] MEDS ORDERED: ceFOXitin 1 GM VIAL ONE (07:44)
[2021-08-19] MEDS ORDERED: Phenylephrine 10 MG/ML VIAL ONE (07:44)
[2021-08-19] MEDS ORDERED: Sodium Chloride 0.9% 100 ML ONE (07:44)
[2021-08-19] MEDS ORDERED: PHENYLEPHRINE-NS 100 MCG/ML 10 ML SYRINGE ONE ×2 (07:45→08:20)
[2021-08-19] MEDS ORDERED: SUGAMMADEX SODIUM 200 MG/2 ML VIAL ONE (07:45)
[2021-08-19] MEDS ORDERED: HYDROmorphone 0.5 MG/0.5 ML SYRINGE ONE (08:10)
[2021-08-19] MEDS ORDERED: Gentamicin Sulfate 80 MG in Premix Bag 1 BAG IVPB SCH (08:15)
[2021-08-19] MEDS ORDERED: PROPOFOL 200 MG/20 ML VIAL ONE (08:20)
[2021-08-19] MEDS ORDERED: Lidocaine 1% PF 5 ML VIAL ONE (08:20)
[2021-08-19] MEDS ORDERED: Bupivacaine HCl 0.5%/Epinephrine 1:200,000/PF 30 ml Vial ONE (08:20)
[2021-08-19] MEDS ORDERED: Rocuronium Bromide 10 MG/ML (10ML VIAL) ONE (08:20)
[2021-08-19] MEDS ORDERED: ePHEDrine 50 MG/ML VIAL ONE (08:20)
[2021-08-19] MEDS ORDERED: Dexamethasone 20 MG/5 ML VIAL ONE (08:20)
[2021-08-19] MEDS ORDERED: Ondansetron PF 4 MG/2 ML Vial ONE (08:20)
[2021-08-19] MEDS ORDERED: Glycopyrrolate 0.2 MG/ML 5 ML SYRINGE ONE (08:20)
[2021-08-19] MEDS ORDERED: Ondansetron HCl/PF 4 MG/2 ML Vial IVP PRN (12:38)
[2021-08-19] MEDS ORDERED: Promethazine HCl 25 MG/ML VIAL IM PRN (12:38)
[2021-08-19] MEDS ORDERED: Promethazine HCl 25 MG/ML VIAL IVPB PRN (12:38)
[2021-08-19] MEDS ORDERED: HYDROmorphone 2 MG/ML VIAL SLOW IVP PRN (12:38)
[2021-08-19] MEDS ORDERED: Ondansetron PF 4 MG/2 ML Vial IVP PRN (12:58)
[2021-08-19] MEDS ORDERED: Oxybutynin 5 MG TAB PO PRN (12:58)
[2021-08-19] MEDS ORDERED: Fentanyl 100 MCG/2 ML VIAL SLOW IVP PRN (12:58)
[2021-08-19] MEDS ORDERED: Mag-Al 1200 mg/1200 mg/30 ML UDCUP PO PRN (12:58)
[2021-08-19] MEDS ORDERED: Hyoscyamine Sulfate SL 0.125 mg Tablet SL PRN (12:58)
[2021-08-19] MEDS ORDERED: hydrALAZINE 20 MG/ML VIAL SLOW IVP PRN (12:58)
[2021-08-19] MEDS ORDERED: diphenhydrAMINE 25 MG CAP PO PRN (12:58)
[2021-08-19] MEDS ORDERED: oxyCODONE 5 MG TAB PO PRN ×2 (12:58)
[2021-08-19] MEDS ORDERED: Ketorolac Tromethamine 30 MG/ML VIAL IVP SCH (13:00)
[2021-08-19 13:49] LABS: Hemoglobin 12.1 g/dL (14.0-18.0); Mean Corpuscular HGB CONC 31.2 g/dL (32.0-36.0); Mean Corpuscular Hemoglobin 27.3 pg (27.0-31.0); Mean Corpuscular Volume 87.3 fL (78.0-98.0); Mean Platelet Volume 7.8 fL (7.4-10.4); Platelet Count 117 thou/uL (130-400); RBC Distribution Width 13.3 % (11.5-14.5); Red Blood Cell (RBC) Count 4.43 mill/uL (4.70-6.10); White Blood Cell (WBC) Count 9.4 thou/uL (4.8-10.8)
[2021-08-19 14:10] LABS: Anion Gap 9 mmol/L (10-20); BUN (Urea Nitrogen) 20 mg/dL (8.4-25.7); Calc. Creatinine Clearance 42 mL/min (70-130); Calcium 8.6 mg/dL (7.8-10.44); Carbon Dioxide 27 mmol/L (23-31); Chloride 106 mmol/L (98-107); Glucose 130 mg/dL (80-115); Potassium 4.2 mmol/L (3.5-5.1); Sodium 138 mmol/L (136-145)
[2021-08-19] MEDS: Acetaminophen 500 MG TAB PO SCH ×2 (14:17→20:37)
[2021-08-19] MEDS: traMADol HCl 50 MG TAB PO SCH ×2 (14:20→20:36)
[2021-08-19] MEDS: Gabapentin 300 MG CAP PO SCH ×2 (14:20→20:37)
[2021-08-19] MEDS: cefOXitin 1.5 GM in Sodium Chloride 0.9% 100 ML IVPB SCH ×2 (15:45→21:24)
[2021-08-19] MEDS: Sodium Chloride 0.9% 1,000 ML IV SCH ×2 (15:46→18:29)
[2021-08-19] MEDS: Docusate 100 MG CAP PO SCH (20:36)
[2021-08-19] MEDS ORDERED: Famotidine 20 MG TAB PO SCH (21:00)
[2021-08-19] MEDS ORDERED: Atorvastatin Calcium 40 MG TAB PO SCH (21:00)
[2021-08-20] MEDS: Acetaminophen 500 MG TAB PO SCH ×3 (02:10→14:19)
[2021-08-20] MEDS: traMADol HCl 50 MG TAB PO SCH ×3 (02:10→14:19)
[2021-08-20] MEDS: cefOXitin 1.5 GM in Sodium Chloride 0.9% 100 ML IVPB SCH (05:35)
[2021-08-20 06:41] LABS: #Lymphocytes 1.1 thou/uL (1.20-3.40); #Monocytes 0.5 thou/uL (0.11-0.59); #Neutrophils 6.1 thou/uL (1.40-6.50); %Basophils 0.1 % (0.0-1.0); %Eosinophils 0.2 % (0.0-10.0); %Lymphocytes 14.6 % (21.0-51.0); %Monocytes 5.9 % (0.0-10.0); %Neutrophils 79.3 % (42.0-75.0); Mean Corpuscular HGB CONC 31.3 g/dL (32.0-36.0); Mean Corpuscular Hemoglobin 27.4 pg (27.0-31.0); Mean Corpuscular Volume 87.3 fL (78.0-98.0); Mean Platelet Volume 7.8 fL (7.4-10.4); Platelet Count 101 thou/uL (130-400); RBC Distribution Width 13.1 % (11.5-14.5); Red Blood Cell (RBC) Count 4.04 mill/uL (4.70-6.10); White Blood Cell (WBC) Count 7.7 thou/uL (4.8-10.8)
[2021-08-20 07:37] LABS: Anion Gap 9 mmol/L (10-20); BUN (Urea Nitrogen) 21 mg/dL (8.4-25.7); Calc. Creatinine Clearance 35 mL/min (70-130); Carbon Dioxide 25 mmol/L (23-31); Chloride 106 mmol/L (98-107); Potassium 4.1 mmol/L (3.5-5.1); Sodium 136 mmol/L (136-145)
[2021-08-20 07:38] LABS: Glucose 105 mg/dL (80-115)
[2021-08-20] MEDS: Docusate 100 MG CAP PO SCH (08:03)
[2021-08-20] MEDS: Gabapentin 300 MG CAP PO SCH ×2 (08:05→14:22)
[2021-08-20] MEDS ORDERED: Chlorthalidone 25 MG TAB PO SCH (09:00)
[2021-08-20] MEDS ORDERED: Lisinopril 20 MG TAB PO SCH (09:00)
[2021-08-20] MEDS ORDERED: Amlodipine 10 MG TAB PO SCH (09:00)
[2021-08-20 11:41] VITALS: BP 119/70; TEMP 97.6
== END 2021-08-20 15:00 | disposition home or self-care (01) | DRG 707 ==
LOC: SURG A 08-19 05:53 → SJJU 08-19 13:26
PROVIDERS: ADMIT Urology; ATTEND Urology
PROC: 0VT04ZZ Resection of Prostate, Percutaneous Endoscopic Approach (ICD-10-PCS; principal; 2021-08-19)
PROC: 07BC4ZZ Excision of Pelvis Lymphatic, Percutaneous Endoscopic Approach (ICD-10-PCS; 2021-08-19)
PROC: 8E0W4CZ Robotic Assisted Procedure of Trunk Region, Percutaneous Endoscopic Approach (ICD-10-PCS; 2021-08-19)
DX: C61 Malignant neoplasm of prostate (principal); N17.9 Acute kidney failure, unspecified; N99.61 Intraoperative hemorrhage and hematoma of a genitourinary system organ or structure complicating a genitourinary system procedure; Z20.822 Contact with and (suspected) exposure to COVID-19; T36.95XA Adverse effect of unspecified systemic antibiotic, initial encounter; Y92.239 Unspecified place in hospital as the place of occurrence of the external cause; Y83.8 Other surgical procedures as the cause of abnormal reaction of the patient, or of later complication, without mention of misadventure at the time of the procedure; Z01.818 Encounter for other preprocedural examination
CPT/HCPCS: 36415; 71046; 80048; 80053; 81001; 85025; 85027; 85610; 85730; 86850; 86900; 86901; 87086; 88305; 88309; C1713; C1776; J0694; J1100; J1170; J1642; J2001; J2250; J2370; J2405; J2704; J3010; J3490; J7050; U0003; U0005

== ENCOUNTER 2021-08-17 14:17 | Outpatient (CLI) | payer BC, MEDICARE | END 2021-08-17 14:18 | disposition home or self-care (01) | LOC: LABBT 14:17 | PROVIDERS: ATTEND Urology | DX: Z01.818 Encounter for other preprocedural examination (principal) | CPT/HCPCS: 71046 ==

== ENCOUNTER 2021-09-06 07:36 | Outpatient (CLI) | payer BC | END 2021-09-06 07:37 | disposition home or self-care (01) | LOC: RAD 07:36 | PROVIDERS: ATTEND Urology | DX: C61 Malignant neoplasm of prostate (principal); S37.20XD Unspecified injury of bladder, subsequent encounter | CPT/HCPCS: 51600; 74430 ==